=== PATIENT | male | born 1940 | race Caucasian/White ===

== ENCOUNTER → 2017-04-15 | Outpatient (CLI) | payer MEDICARE, OTHER ==
--- NOTE | 2017-04-15 15:03 | RADRPT ---
PROCEDURE: XR pelvis/right hip. CLINICAL INDICATION: Hip pain TECHNIQUE: AP pelvis/AP and lateral right hip views performed COMPARISON: No prior studies are available for comparison. FINDINGS: There is moderate right hip osteoarthrosis. There is mild left hip osteoarthrosis. This is associat ed with joint space narrowing, subchondral sclerosis and osteophytosis. There is normal mineralizat ion. No fractures or osseous lesions are identified. The soft tissues are unremarkable. IMPRESSION: Moderate right hip osteoarthrosis. Mild left hip osteoarthrosis RPTAT: HGDB .Tyrese Curran MD, Date Time Electronically viewed and signed by .Tyrese Curran MD, on 04/15/2017 15:03 .B/
== END | disposition home or self-care (01) ==
LOC: HKI 14:02
PROVIDERS: ATTEND Orthopaedic Surgery
DX: M16.11 Unilateral primary osteoarthritis, right hip (principal); I51.9 Heart disease, unspecified; I10 Essential (primary) hypertension; C61 Malignant neoplasm of prostate; Z87.891 Personal history of nicotine dependence; S72.051A Unspecified fracture of head of right femur, initial encounter for closed fracture; W19.XXXA Unspecified fall, initial encounter
CPT/HCPCS: 73502; G0463

== ENCOUNTER → 2017-05-18 | Outpatient (CLI) | payer MEDICARE, OTHER | END | disposition home or self-care (01) | LOC: HKI 10:00 | PROVIDERS: ATTEND Orthopaedic Surgery | DX: Z01.818 Encounter for other preprocedural examination (principal); M16.11 Unilateral primary osteoarthritis, right hip; M25.551 Pain in right hip | CPT/HCPCS: G0463 ==

== ENCOUNTER 2017-05-26 05:42 | Inpatient (IN) | payer MEDICARE, OTHER ==
[2017-05-18 14:18] VITALS: BMI 30.2
[2017-05-26] VITALS (34 sets, daily range): BP systolic 99–145; BP diastolic 46–75; PULSE 43–76; RESP 13–22; Ht 177.8 cm; Wt 94.7 kg
[~2017-05-26] VITALS: Ht 177.8 cm; Wt 94.7 kg
[2017-05-26] MEDS ORDERED: VANCOMYCIN 1 GM INJ ONE (06:44)
[2017-05-26] MEDS ORDERED: POLYMYXIN B 500000 UNIT INJ ONE (06:44)
[2017-05-26] MEDS ORDERED: BACITRACIN 50000 UNITS INJ ONE (06:45)
[2017-05-26] MEDS ORDERED: BUPIVACAINE LIPOSOME/PF 266 MG/20 ML VIAL INFIL SCH (07:00)
[2017-05-26] MEDS ORDERED: oxyCODONE (CR) 10 MG TAB [oxyCONTIN] X1 DOSE PO SCH (07:00)
[2017-05-26] MEDS ORDERED: PREGABALIN 300 MG PO X1 PO SCH (07:00)
[2017-05-26] MEDS ORDERED: TRANEXAMIC ACID 980 MG in SOD CHLORIDE 0.9% 90.2 ML IV SCH (07:00)
[2017-05-26] MEDS ORDERED: EXPAREL NOTE (BUPIVICAINE LIPOSOMAL) XX SCH (07:00)
[2017-05-26] MEDS ORDERED: traMADOL 50 MG TAB X 1 DOSE PO SCH (07:00)
[2017-05-26] MEDS ORDERED: EPHEDrine SULFATE 50 MG/5 ML SYG ONE (07:00)
[2017-05-26] MEDS ORDERED: ONDANSETRON 4 MG IV X 1 DOSE IV SCH (07:00)
[2017-05-26] MEDS ORDERED: CELECOXIB 400 MG PO X1 DOSE PO SCH (07:00)
[2017-05-26] MEDS ORDERED: LACTATED RINGER'S 1,000 ML IV SCH (07:00)
[2017-05-26] MEDS ORDERED: PAIN COCKTAIL-CEFUROXIME IRR SCH ×7 (07:00)
[2017-05-26] MEDS ORDERED: CEFAZOLIN 2GM/50 ML (PMX) 50 ML X1 BEFORE INCISION IVPB SCH (07:00)
[2017-05-26] MEDS ORDERED: MIDAZOLAM 1 MG/ML 2 ML INJ ONE (07:13)
[2017-05-26] MEDS ORDERED: ONDANSETRON 4 MG INJ ONE (07:13)
[2017-05-26] MEDS ORDERED: ROCURONIUM 50 MG INJ ONE (07:13)
[2017-05-26] MEDS ORDERED: FENTAnyl 50 MCG/ML VIAL ONE (07:13)
[2017-05-26] MEDS ORDERED: DEXAMETHASONE 4 MG/ML 1 ML INJ ONE (07:13)
[2017-05-26] MEDS ORDERED: CEFAZOLIN 1 GM INJ ONE (07:13)
[2017-05-26] MEDS ORDERED: GLYCOPYRROLATE 0.4 MG INJ ONE (07:13)
[2017-05-26] MEDS ORDERED: NEOSTIGMINE 3 MG/3 ML SYRINGE ONE (07:13)
[2017-05-26] MEDS ORDERED: PROPOFOL 20 ML ONE (07:13)
--- NOTE | 2017-05-26 07:16 | HPN ---
Date/Time of Note Date/Time of Note DATE: 05/26/17 TIME: 07:15 Interval H&P Admission Note Pt. seen H&P reviewed: No system changes No change from H&P on 05/25/17 by MACHO Dunne MD May 26, 2017 07:15
[2017-05-26] MEDS ORDERED: UBID100T7 PO (07:22)
[2017-05-26] MEDS ORDERED: GABA300S PO (07:22)
[2017-05-26] MEDS ORDERED: ATEN-51 PO (07:22)
[2017-05-26] MEDS ORDERED: ROSU40TA35 PO (07:22)
[2017-05-26] MEDS ORDERED: PANT40TA4 PO (07:22)
[2017-05-26] MEDS ORDERED: FELO2.5T3 PO (07:22)
[2017-05-26] MEDS ORDERED: LEUP45SY IM (07:22)
[2017-05-26] MEDS ORDERED: CELE200C PO (07:22)
[2017-05-26] MEDS ORDERED: DOCU-144 PO (07:22)
[2017-05-26] MEDS ORDERED: CHOL20003 PO (07:22)
[2017-05-26] MEDS ORDERED: ESCI10TA48 PO (07:22)
[2017-05-26] MEDS ORDERED: TAMS0.4C2 PO (07:22)
[2017-05-26] MEDS ORDERED: ZOLP10TA5 PO (07:22)
[2017-05-26] MEDS ORDERED: POLY17PO6 PO (07:22)
[2017-05-26] MEDS ORDERED: ASPI81TA3 PO (07:22)
[2017-05-26] MEDS ORDERED: LISI-313 PO (07:22)
[2017-05-26] MEDS ORDERED: FENTAnyl 50 MCG/ML VIAL IV PRN ×3 (08:30)
[2017-05-26] MEDS ORDERED: EPHEDrine SULFATE 50 MG/5 ML SYG IV PRN (08:30)
[2017-05-26] MEDS ORDERED: MEPERIDINE 25 MG INJ IV PRN (08:30)
[2017-05-26] MEDS ORDERED: hydrALAzine 20 MG INJ IV PRN (08:30)
[2017-05-26] MEDS ORDERED: LABETALOL HCL 20MG INJ IV PRN (08:30)
[2017-05-26] MEDS ORDERED: TRIMETHOBENZAMIDE 100 MG/ML VIAL IM PRN (08:30)
[2017-05-26] MEDS ORDERED: HYDROmorphONE (0.2 MG/ML) 10ML SYG IV PRN ×3 (08:30)
[2017-05-26] MEDS ORDERED: ONDANSETRON 4 MG INJ IV PRN ×2 (08:30→10:30)
[2017-05-26] MEDS ORDERED: OXYCODONE/ACETAMINOPHEN (5/325) TAB PO PRN ×2 (08:30)
[2017-05-26] MEDS ORDERED: DIPHENHYDRAMINE 50 MG INJ IV PRN (08:30)
[2017-05-26] MEDS ORDERED: MIDAZOLAM 1 MG/ML 2 ML INJ IV PRN (08:30)
[2017-05-26] MEDS: TRANEXAMIC ACID 980 MG in SOD CHLORIDE 0.9% 100 ML IVPB SCH ×2 (08:50→09:40)
[2017-05-26] MEDS ORDERED: ETOMIDATE 20 MG INJ ONE (09:30)
[2017-05-26] MEDS ORDERED: PROPOFOL 100 ML ONE (09:30)
--- NOTE | 2017-05-26 10:19 | OPR ---
Date/Time of Note Date/Time of Note DATE: 05/26/17 TIME: 10:13 Operative Report Procedure Description DATE: 05/26/2017 PREOPERATIVE DIAGNOSIS: Right hip osteoarthritis POSTOPERATIVE DIAGNOSIS: Right hip osteoarthritis OPERATION PERFORMED: Right anterior total hip arthroplasty SURGEON: Regis Lewis MD COMPONENTS USED: Depuy 54 mm description [place] cup, 54/36 neutral Altrx polyethylene liner, size 6 high offset Actis stem, 36+5 ceramic head ANESTHESIA: Spinal plus general endotracheal intubation. ANESTHESIOLOGIST: Dr. Martin ESTIMATED BLOOD LOSS: 300 cc INTRAVENOUS FLUIDS: 2000 cc crystalloid SPECIMENS: Femoral head. DRAINS: Hemovac 1 COMPLICATIONS: None. DISPOSITION: The patient tolerated the procedure well and was taken to the recovery room in stable condition. INDICATIONS: The patient is a 76-year-old gentleman who has developed progressively worsening pain in his right hip secondary to severe osteoarthritis. He has tried a multitude of nonsurgical means of treatment to address his pain including activity modifications, pain medications, and ambulatory assist devices. Despite these measures he has had worsening pain I feel he will benefit from a total hip arthroplasty through an anterior approach. The risks, benefits, and alternatives of the procedure were explained in detail to the patient. I explained the risks of the surgery to include, but not be limited to: bleeding and possible need for blood transfusion; infection; pain; stiffness; neurovascular injury with possible numbness, weakness, and/or paralysis anywhere from the hip down to the toes; fracture; instability; dislocation; leg length inequality; wear and/or loosening of the prosthesis and possible need for future revision; blood clots; pulmonary embolism; and anesthetic complications such as heart attack, stroke, GI bleed, pneumonia, and/ or . Ample time was allowed for the patient to ask questions, all of which were addressed and answered. The patient understood the risks involved and wished to proceed. Informed consent was signed prior to the procedure. PROCEDURE: The patient's [] hip was initialed with a marking pen in the preoperative area to identify the correct operative site. The patient was brought to the operating room and transferred from the [facility] to the [facility] where a spinal anesthetic was administered. The patient was then anesthetized and intubated. A Peters catheter was placed. Both feet were placed into well padded boots which were then placed into the leg holders of the traction booms. A timeout was performed to confirm that the [] side was the correct operative site. The patient was given 2 g of intravenous Ancef within one hour prior to the procedure. The operative hip was prepped and draped in the usual sterile fashion. A 10 cm oblique incision was made over the anterior aspect of the hip and carried down through subcutaneous tissue and fat with sharp dissection. The tensor fascia anirudh was incised along the length of the wound. The tensor fascia muscle was retracted laterally and the sartorius medially. The anterior circumflex vessels were identified and tied off with 2-0 silk suture and coagulated with the Tissue Link manager diversity. The rectus femoris was elevated off the anterior capsule and an anterior capsulectomy performed. A femoral neck osteotomy was made and the head removed from the acetabulum. The acetabulum was denuded of cartilage circumferentially, as was the femoral head. Retractors were placed around the acetabulum. The remnants of the labrum and ligamentum teres were excised. I reamed the acetabulum to the medial wall and then went into an anatomic position and increased the reamer size in 2 mm increments until I got a good bite and was down to bleeding subchondral bone. The [place] cup was opened and impacted into the acetabulum and sat flush circumferentially, getting a good bite. C-arm imaging showed it had about 40 to 45 degrees of abduction and 20 degrees of anteversion. Attention was turned towards the femur. The operative leg was carefully lowered to the floor with the leg adducted. The foot was then externally rotated to approximately 110 degrees. A posteromedial release was performed to optimize exposure. The femoral hook was placed underneath the proximal femur and the hydraulic lift was then used to elevate the femur up out of the wound. The cookie cutter osteotome was used to remove the remaining overhanging greater trochanter. The femur was then broached, going up in one size increments until it sat flush with the neck cut and a stable fit was achieved. The trial neck and head were assembled and reduced into the acetabulum. Fluoroscopic imaging showed the components to be in good position and the leg lengths and offsets to be equal. At this point, the trial was dislocated and the trial broach removed. The canal was irrigated and dried. The real stem was opened and impacted into the femur. The trunnion was irrigated and dried, and the real femoral head was impacted onto the trunnion, and reduced into the acetabulum. The soft tissues were infiltrated with a mixture of 150 mg of 0.5% Bupivacaine, 8 mg of Duramorph, 300 mcg of epinephrine, 30 mg of Toradol, 100 mcg of clonidine, 750 mg of cefuroxime and 86 mL of normal saline, followed by an injection of 266 mg of liposomal Bupivacaine. At this point the hip was irrigated with a mixture of betadine/saline and then antibiotic saline with pulsatile lavage. A Hemovac drain was placed in the deep portion of the wound and brought out the anterolateral thigh. There was good hemostasis. The tensor fascia anirudh was repaired with a running #1 Vicryl. The deep fat layer was irrigated and closed with 2-0 Stratafix and the subcutaneous layer closed with 3 -0 Vicryl and the skin was closed with marcella and then sealed with Dermabond. The drain was secured with 3-0 nylon. The sponge and needle counts were correct at the end of the case. The wound was covered with an occlusive dressing. The patient was awakened, extubated, and taken to the recovery room in stable condition. REGIS LEWIS MD May 26, 2017 10:19
[2017-05-26] MEDS ORDERED: ZOLPIDEM 5 MG TAB PO PRN (10:30)
[2017-05-26] MEDS ORDERED: NACL 0.9% 3 ML SYG IV SCH (10:30)
[2017-05-26] MEDS ORDERED: HYDROmorphONE 1 MG/ML SYG IV PRN (10:30)
[2017-05-26] MEDS ORDERED: NA PHOSPHATE/BIPHOS 133 ML ENEMA PR PRN (10:30)
[2017-05-26] MEDS ORDERED: DIPHENHYDRAMINE 25 MG CAP PO PRN (10:30)
[2017-05-26] MEDS ORDERED: ASPIRIN (EC) 325 MG TAB PO ONE (10:30)
[2017-05-26] MEDS ORDERED: BISACODYL 10 MG SUPP PR PRN (10:30)
[2017-05-26] MEDS ORDERED: MAGNESIUM HYDROXIDE 30ML CUP PO PRN (10:30)
[2017-05-26] MEDS ORDERED: oxyCODONE 5 MG TAB PO PRN ×2 (10:30)
[2017-05-26 10:39] LABS: HEMATOCRIT 31.9 % (42.0-52.0); HEMOGLOBIN 10.4 g/dl (14.0-18.0)
[2017-05-26 10:54] LABS: CALCIUM 9.2 mg/dl (8.4-10.2); CREATININE 1.04 mg/dl (0.61-1.24); POTASSIUM 4.3 mmol/L (3.5-5.1)
[2017-05-26] MEDS: CEFAZOLIN 2 GM/50 ML (PMX) 50 ML IVPB SCH ×2 (10:56→18:30)
--- NOTE | 2017-05-26 11:10 | RADRPT ---
PROCEDURE: Intraoperative imaging of the right hip with fluoroscopy. CLINICAL INDICATION: Right hip pain. Intraoperative. TECHNIQUE: 16 images of the right hip were obtained in the operating room with an image intensifie r. No radiologist was in attendance. 0.4 minutes of fluoroscopy time was used. COMPARISON: No prior study is available for comparison. FINDINGS: Images demonstrate placement of a total right hip arthroplasty. IMPRESSION: 1. Satisfactory intraoperative imaging of the right hip. RPTAT: QQ .Dionicio Michelle MD, MD Date Time Electronically viewed and signed by .Dionicio Michelle MD, on 05/26/2017 11:10 .R/
--- NOTE | 2017-05-26 11:44 | RADRPT ---
PROCEDURE: XR Pelvis. CLINICAL INDICATION: Pelvic pain. Postop. TECHNIQUE: Single frontal view. COMPARISON: Intraoperative imaging done earlier the same day. FINDINGS: There is a right hip total arthroplasty. This appears satisfactory with no fracture, dislocation or loosening. There is no lytic lesion. There are mild degenerative changes of the left hip with osteophytes noted. Right lateral skin marcella and surgical drain are noted. There is gas in the soft tissues of the ri ght hip related to the recent surgery. IMPRESSION: 1. Satisfactory postoperative appearance of the right hip. 2. Mild degenerative changes of the left hip. RPTAT: QQ .Dionicio Michelle MD, MD Date Time Electronically viewed and signed by .Dionicio Michelle MD, MD on 05/26/2017 11:44 .R/
[2017-05-26] MEDS: traMADol 50 MG TAB PO SCH ×3 (12:28→23:08)
[2017-05-26] MEDS: ACETAMINOPHEN 1000MG/100ML IV 100 ML IVPB SCH ×3 (12:29→23:07)
--- NOTE | 2017-05-26 13:54 | CONS ---
Date/Time of Note Date/Time of Note DATE: 05/26/17 TIME: 13:38 Assessment/Plan Assessment/Plan Chief Complaint/Hosp Course Impression: This patient is now postop a right total hip arthroplasty. He is awake and alert. He denies pain. He denies any chest pain or shortness of breath. The patient has a history of atherosclerotic heart disease, prostate cancer, hypertension, hyperlipidemia. I will manage these medical problems. His blood pressure is normal and he is doing well. Plan: 1. Resume some routine medications 2. Check labs in the morning 3. Postop total hip replacement protocol 4. I will follow the patient along with you. Problems: Consultation Date/Type/Reason Admit Date/Time May 26, 2017 at 05:42 Date of Consultation: May 26, 2017 Type of Consultation: medicine Reason for Consultation To manage the patient's hypertension, atherosclerotic heart disease, hyperlipidemia, benign prostatic hypertrophy and prostate cancer, Referring Provider: MACHO LEWIS MD Hx of Present Illness This 76-year-old man is now postop a right total hip arthroplasty. The patient fell and injured his right hip about 3 months ago and since that time he has had increasing pain and limitation of motion. He did have an MRI of his hip that showed a fracture of the femoral head and severe osteoarthritis. The patient did see Dr. Kirt Henriquez in consultation. The patient had failed medical therapy and decided to undergo surgery which was done this morning. The patient is awake and alert. He denies any chest pain or shortness of breath. Patient does have a history of atherosclerotic heart disease and was seen by his raw juice weigher Dr. Chacho Samayoa and cleared for this surgery. There is a note on the chart from Dr. Samayoa . Constitutional: no complaints ENT: no complaints Respiratory: no complaints Cardiovascular: no complaints Gastrointestinal: no complaints Genitourinary: no complaints Skin: no complaints Neurologic: no complaints Past Medical History Medical History: coronary artery disease, high cholesterol, hypertension Past Surgical History Past Surgical Hx: angioplasty, other Family History Significant Family History: heart disease Social History Alcohol Use: occasionally Smoking Status: Former smoker Drug Use: none Exam/Review of Systems Vital Signs Vitals Vital Signs Date Time Temp Pulse Resp B/P Pulse Ox O2 Delivery O2 Flow Rate FiO2 05/26/17 13:15 98.1 63 18 111/55 95 05/26/17 12:49 Nasal Cannula 2.0 Exam Constitutional: alert, oriented, well developed Respiratory: clear to auscultation, normal air movement Cardiovascular: regular rate and rhythm Gastrointestinal: soft Musculoskeletal: nl extremities to inspection Results Result Diagram: 05/26/17 1021 05/26/17 1021 Results 24 hrs Laboratory Tests Test 05/26/17 10:21 Hemoglobin 10.4 L Hematocrit 31.9 L Sodium Level 136 Potassium Level 4.3 Chloride Level 100 Carbon Dioxide Level 27 Anion Gap 13 Blood Urea Nitrogen 16 Creatinine 1.04 Glucose Level 168 Calcium Level 9.2 Medications Medications Current Medications Lactated Ringer's (Lr) 1,000 ml @ 100 mls/hr Q10H IV ; Start 05/26/17 at 07:00 ; Stop 05/26/17 at 16:59 Miscellaneous Information 1 ea NOTE XX ; Start 05/26/17 at 07:00; Stop 05/30/17 at 06:59 Atenolol (Tenormin) 25 mg DAILY PO ; Start 05/27/17 at 09:00 Celecoxib (Celebrex) 200 mg DAILY PO ; Start 05/27/17 at 09:00 Cholecalciferol (Vitamin D) 1,000 unit DAILY PO ; Start 05/27/17 at 09:00 Docusate Sodium (Colace) 100 mg DAILY PO ; Start 05/27/17 at 09:00 Escitalopram Oxalate (Lexapro) 10 mg DAILY PO ; Start 05/27/17 at 09:00 Felodipine (Plendil) 2.5 mg DAILY PO ; Start 05/27/17 at 09:00 Lisinopril (Zestril) 5 mg DAILY PO ; Start 05/27/17 at 09:00 Polyethylene Glycol (Miralax) 8.5 gm DAILY PO ; Start 05/27/17 at 09:00 Rosuvastatin Calcium (Crestor) 40 mg QHS PO ; Start 05/26/17 at 21:00 Tamsulosin HCl (Flomax) 0.4 mg DAILY PO ; Start 05/27/17 at 09:00 Zolpidem Tartrate 10 mg 10 mg QHS PRN PO INSOMNIA; Start 05/26/17 at 10:30 Lactated Ringer's 1,000 ml @ 125 mls/hr Q8H IV ; Start 05/26/17 at 10:28 Acetaminophen (Ofirmev 1000mg/ 100ml Iv) 100 ml @ 400 mls/hr Q6 IVPB Last administered on 05/26/17 12:29; Admin Dose 400 MLS/HR; Start 05/26/17 at 12:00 ; Stop 05/27/17 at 11:59 Tramadol HCl (Ultram) 50 mg Q6 PO Last administered on 05/26/17 12:28; Admin Dose 50 MG; Start 05/26/17 at 12:00; Stop 05/29/17 at 11:59 Oxycodone HCl (Roxicodone) 5 mg Q4H PRN PO PAIN LEVEL 1-3; Start 05/26/17 at 10 :30 Oxycodone HCl (Roxicodone) 10 mg Q4H PRN PO PAIN LEVEL 4-7; Start 05/26/17 at 10:30 Hydromorphone HCl 1 mg 1 mg Q3H PRN IV PAIN LEVEL 8-10; Start 05/26/17 at 10:30 Cefazolin Sodium/ Dextrose (Ancef 2 Gm/50 ml (Pmx)) 50 ml @ 100 mls/hr Q8H IVPB Last administered on 05/26/17 10:56; Admin Dose 100 MLS/HR; Start at 10:30; Stop 05/27/17 at 02:59 Ondansetron HCl (Zofran Inj) 4 mg Q6H PRN IV NAUSEA AND/OR VOMITING; Start at 10:30 Bisacodyl (Dulcolax Supp) 10 mg Q12H PRN [place] CONSTIPATION; Start 05/26/17 at 10: 30 Magnesium Hydroxide (Milk Of Mag) 30 ml BID PRN PO CONSTIPATION; Start at 10:30 Sodium Biphosphate/ Sodium Phosphate (Fleet Enema) 133 ml DAILY PRN [place] CONSTIPATION; Start 05/26/17 at 10:30 Docusate Sodium (Colace) 100 mg BID PO ; Start 05/26/17 at 21:00 Diphenhydramine HCl (Benadryl) 25 mg Q6H PRN PO PRURITUS; Start 05/26/17 at 10: 30 Aspirin (Ecotrin) 325 mg BID PO ; Start 05/27/17 at 09:00 Pantoprazole (Protonix Tab) 40 mg BID@06,18 PO ; Start 05/26/17 at 18:00 FEI MENENDEZ MD May 26, 2017 13:49
[2017-05-26] MEDS: LACTATED RINGER'S 1,000 ML IV SCH ×2 (18:01→18:12)
[2017-05-26] MEDS: PANTOPRAZOLE (EC) 40 MG TAB PO SCH (18:11)
[2017-05-26] MEDS: DOCUSATE SODIUM 100 MG CAP PO SCH (21:38)
[2017-05-26] MEDS: ROSUVASTATIN CALCIUM 40 MG TABLET PO SCH (21:38)
[2017-05-27] VITALS: BP 119/65; RESP 18
[2017-05-27] MEDS: LACTATED RINGER'S 1,000 ML IV SCH ×2 (02:10→12:49)
[2017-05-27] MEDS: CEFAZOLIN 2 GM/50 ML (PMX) 50 ML IVPB SCH (02:10)
[2017-05-27 05:16] LABS: HEMATOCRIT 28.6 % (42.0-52.0); HEMOGLOBIN 9.7 g/dl (14.0-18.0)
[2017-05-27] MEDS: PANTOPRAZOLE (EC) 40 MG TAB PO SCH ×2 (05:20→17:51)
[2017-05-27] MEDS: ACETAMINOPHEN 1000MG/100ML IV 100 ML IVPB SCH (05:20)
[2017-05-27] MEDS: traMADol 50 MG TAB PO SCH ×4 (05:20→23:59)
[2017-05-27 05:30] VITALS: BP 114/57; PULSE 44; RESP 18
[2017-05-27 05:56] LABS: CALCIUM 9.4 mg/dl (8.4-10.2); CREATININE 0.96 mg/dl (0.61-1.24); POTASSIUM 4.2 mmol/L (3.5-5.1)
[2017-05-27] MEDS ORDERED: PANTOPRAZOLE (EC) 40 MG TAB PO SCH (07:00)
[2017-05-27 07:59] VITALS: BP 124/63; RESP 18
[2017-05-27] MEDS: ATENOLOL 25 MG TAB PO SCH (08:15)
--- NOTE | 2017-05-27 08:40 | PN ---
Date/Time of Note Date/Time of Note DATE: 05/27/17 TIME: 08:38 Assessment/Plan Lines/Catheters IV Catheter Type (from Nrsg): Peripheral IV Peters in Place (from Nrsg): Yes Assessment/Plan Assessment/Plan POD # 1. Stable. -Drain removed -OOB with PT -Pain meds -ASA/SCDs -Plan for d/c to home tomorrow Subjective 24 Hr Interval Summary Comfortable. Minimal pain. Exam/Review of Systems Vital Signs Vitals Vital Signs Date Time Temp Pulse Resp B/P Pulse Ox O2 Delivery O2 Flow Rate FiO2 05/27/17 07:59 98.0 41 18 124/63 93 05/27/17 05:30 Room Air CPAP 05/27/17 01:17 2.0 Intake and Output 05/26/17 05/26/17 05/27/17 15:00 23:00 07:00 Intake Total 2249.8 ml 350 ml 2075 ml Output Total 610 ml 710 ml 3100 ml Balance 1639.8 ml -360 ml -1025 ml Exam Free Text/Dictation Hemovac: 310 cc Dressing dry Thigh soft 5/5 Quadriceps, Tibialis Anterior, EHL, Gastroc Soleus, Peroneals Normal sensation Palpable DP/PT, CR < 2 Sec No distal edema Xrays: Right ELYSE in good position. Head located in acetabulum Results Result Diagram: 05/27/17 0435 05/27/17 0435 MACHO LEWIS MD May 27, 2017 08:39
[2017-05-27] MEDS ORDERED: HYDR-3605 PO (08:48)
[2017-05-27] MEDS ORDERED: ASPI325T32 PO (08:48)
[2017-05-27] MEDS ORDERED: TRAM50TA2 PO (08:48)
[2017-05-27] MEDS: POLYETHYLENE GLYCOL 17 GM PACKET PO SCH ×2 (08:50→09:00)
[2017-05-27] MEDS: TAMSULOSIN (SR) 0.4 MG CAP PO SCH (08:51)
[2017-05-27] MEDS: CELECOXIB 200 MG CAP PO SCH (08:51)
[2017-05-27] MEDS: DOCUSATE SODIUM 100 MG CAP PO SCH ×4 (08:52→20:52)
[2017-05-27] MEDS: CHOLECALCIFEROL 1,000 UNIT TAB PO SCH (08:52)
[2017-05-27] MEDS: ESCITALOPRAM 10 MG TAB PO SCH (08:52)
[2017-05-27] MEDS: ASPIRIN (EC) 325 MG TAB PO SCH ×2 (08:57→20:52)
[2017-05-27] MEDS ORDERED: FELODIPINE (ER) 2.5 MG TAB PO SCH (09:00)
[2017-05-27] MEDS ORDERED: CELECOXIB 200 MG CAP PO SCH (09:00)
[2017-05-27] MEDS ORDERED: LISINOPRIL 5 MG TAB PO SCH ×2 (09:00→21:00)
[2017-05-27] MEDS ORDERED: HYDROCODONE/APAP (7.5/325) TAB PO PRN ×2 (09:00)
[2017-05-27 09:18] LABS: ADD UMIC NO; UR ASCORBIC ACID NEGATIVE (NEGATIVE); UR BILIRUBIN (Dip) NEGATIVE (NEGATIVE); UR BLOOD (Dip) NEGATIVE (NEGATIVE); UR CLARITY CLEAR (CLEAR); UR COLOR STRAW (YELLOW); UR GLUCOSE (Dip) NEGATIVE (NEGATIVE); UR KETONES (Dip) NEGATIVE (NEGATIVE); UR LEUKOCYTE ESTERASE (Dip) NEGATIVE Leu/ul (NEGATIVE); UR NITRITE (Dip) NEGATIVE (NEGATIVE); UR TOTAL PROTEIN (Dip) NEGATIVE (NEGATIVE); UR UROBILINOGEN (Dip) NEGATIVE (NEGATIVE)
--- NOTE | 2017-05-27 09:22 | CONS ---
Date/Time of Note Date/Time of Note DATE: 05/27/17 TIME: 09:18 Assessment/Plan Assessment/Plan Chief Complaint/Hosp Course Impression: This patient is now one day postop a right total hip arthroplasty. He is awake and alert. He denies pain. He denies any chest pain or shortness of breath. The patient has a history of atherosclerotic heart disease, prostate cancer, hypertension, hyperlipidemia. He has a history of sinus bradycardia. His heart rate has been low. He has been asymptomatic with this. Plan: 1. Resume some routine medications 2. Labs are acceptable this morning and will be checked tomorrow. 3. Postop total hip replacement protocol and start physical therapy today. 4. I will follow the patient along with you. Problems: Consultation Date/Type/Reason Admit Date/Time May 26, 2017 at 05:42 Initial Consult Date 05/26/17 Type of Consultation: medicine Referring Provider: MACHO LEWIS MD 24 HR Interval Summary Free Text/Dictation He is now 1 day postop a right total hip arthroplasty. He feels well. Constitutional: improved, no complaints Exam/Review of Systems Vital Signs Vitals Vital Signs Date Time Temp Pulse Resp B/P Pulse Ox O2 Delivery O2 Flow Rate FiO2 05/27/17 07:59 98.0 41 18 124/63 93 05/27/17 05:30 Room Air CPAP 05/27/17 01:17 2.0 Intake and Output 05/26/17 05/26/17 05/27/17 15:00 23:00 07:00 Intake Total 2249.8 ml 350 ml 2075 ml Output Total 610 ml 710 ml 3100 ml Balance 1639.8 ml -360 ml -1025 ml Exam Constitutional: alert, oriented, well developed Respiratory: clear to auscultation, normal air movement Cardiovascular: regular rate and rhythm Gastrointestinal: non-tender, soft Extremities: normal pulses Results Result Diagram: 05/27/17 0435 05/27/17 0435 Results 24 hrs Laboratory Tests Test 05/26/17 10:21 05/27/17 04:35 Hemoglobin 10.4 L 9.7 L Hematocrit 31.9 L 28.6 L Sodium Level 136 137 Potassium Level 4.3 4.2 Chloride Level 100 99 Carbon Dioxide Level 27 30 Anion Gap 13 12 Blood Urea Nitrogen 16 14 Creatinine 1.04 0.96 Glucose Level 168 129 Calcium Level 9.2 9.4 Medications Medications Current Medications Miscellaneous Information 1 ea NOTE XX ; Start 05/26/17 at 07:00; Stop 05/30/17 at 06:59 Atenolol (Tenormin) 25 mg DAILY PO ; Start 05/27/17 at 09:00 Celecoxib (Celebrex) 200 mg DAILY PO Last administered on 05/27/17 08:51; Admin Dose 200 MG; Start 05/27/17 at 09:00 Cholecalciferol (Vitamin D) 1,000 unit DAILY PO Last administered on 05/27/17 08:52; Admin Dose 1,000 UNIT; Start 05/27/17 at 09:00 Docusate Sodium (Colace) 100 mg DAILY PO Last administered on 05/27/17 08:52; Admin Dose 100 MG; Start 05/27/17 at 09:00 Escitalopram Oxalate (Lexapro) 10 mg DAILY PO Last administered on 05/27/17 08 :52; Admin Dose 10 MG; Start 05/27/17 at 09:00 Lisinopril (Zestril) 5 mg DAILY PO ; Start 05/27/17 at 09:00 Polyethylene Glycol (Miralax) 8.5 gm DAILY PO Last administered on 05/27/17 08 :50; Admin Dose 8.5 GM; Start 05/27/17 at 09:00 Rosuvastatin Calcium (Crestor) 40 mg QHS PO Last administered on 05/26/17 21: 38; Admin Dose 40 MG; Start 05/26/17 at 21:00 Tamsulosin HCl (Flomax) 0.4 mg DAILY PO Last administered on 05/27/17 08:51; Admin Dose 0.4 MG; Start 05/27/17 at 09:00 Zolpidem Tartrate 10 mg 10 mg QHS PRN PO INSOMNIA; Start 05/26/17 at 10:30 Lactated Ringer's 1,000 ml @ 125 mls/hr Q8H IV Last administered on 05/27/17 02:10; Admin Dose 125 MLS/HR; Start 05/26/17 at 10:28 Acetaminophen (Ofirmev 1000mg/ 100ml Iv) 100 ml @ 400 mls/hr Q6 IVPB Last administered on 05/27/17 05:20; Admin Dose 400 MLS/HR; Start 05/26/17 at 12:00 ; Stop 05/27/17 at 11:59 Tramadol HCl (Ultram) 50 mg Q6 PO Last administered on 05/27/17 05:20; Admin Dose 50 MG; Start 05/26/17 at 12:00; Stop 05/29/17 at 11:59 Hydromorphone HCl (Dilaudid) 1 mg Q3H PRN IV PAIN LEVEL 8-10; Start 05/26/17 at 10:30 Ondansetron HCl (Zofran Inj) 4 mg Q6H PRN IV NAUSEA AND/OR VOMITING; Start at 10:30 Bisacodyl (Dulcolax Supp) 10 mg Q12H PRN [place] CONSTIPATION; Start 05/26/17 at 10: 30 Magnesium Hydroxide (Milk Of Mag) 30 ml BID PRN PO CONSTIPATION; Start at 10:30 Sodium Biphosphate/ Sodium Phosphate (Fleet Enema) 133 ml DAILY PRN [place] CONSTIPATION; Start 05/26/17 at 10:30 Docusate Sodium (Colace) 100 mg BID PO Last administered on 05/27/17 08:52; Admin Dose 100 MG; Start 05/26/17 at 21:00 Diphenhydramine HCl (Benadryl) 25 mg Q6H PRN PO PRURITUS; Start 05/26/17 at 10: 30 Aspirin (Ecotrin) 325 mg BID PO Last administered on 05/27/17 08:57; Admin Dose 325 MG; Start 05/27/17 at 09:00 Pantoprazole (Protonix Tab) 40 mg BID@ PO Last administered on 05/27/17 05:20; Admin Dose 40 MG; Start 05/26/17 at 18:00 Acetaminophen/ Hydrocodone Bitart ([place] (7.5-325)) 1 tab Q6H PRN PO MODERATE PAIN LEVEL 4-6; Start 05/27/17 at 09:00 Acetaminophen/ Hydrocodone Bitart ([place] (7.5-325)) 2 tab Q6H PRN PO SEVERE PAIN LEVEL 7-10; Start 05/27/17 at 09:00 FEI MENENDEZ MD May 27, 2017 09:21
[2017-05-27 13:12] LABS: IRON 35 ug/dl (35-150)
[2017-05-27 13:22] LABS: TOTAL IRON BINDING CAPACITY 346 ug/dl (241-421)
[2017-05-27 20:47] VITALS: BP 123/61; RESP 20
[2017-05-27] MEDS: ROSUVASTATIN CALCIUM 40 MG TABLET PO SCH (20:52)
[2017-05-27] MEDS ORDERED: POLYETHYLENE GLYCOL 17 GM PACKET PO SCH (21:00)
[2017-05-28 05:12] LABS: HEMATOCRIT 29.6 % (42.0-52.0); HEMOGLOBIN 9.6 g/dl (14.0-18.0)
[2017-05-28 05:45] LABS: CALCIUM 9.2 mg/dl (8.4-10.2); CREATININE 0.89 mg/dl (0.61-1.24); POTASSIUM 4.2 mmol/L (3.5-5.1)
[2017-05-28] MEDS: traMADol 50 MG TAB PO SCH (05:51)
[2017-05-28] MEDS: PANTOPRAZOLE (EC) 40 MG TAB PO SCH (05:51)
[2017-05-28 07:00] VITALS: BP 129/62; RESP 20
[2017-05-28] MEDS: ESCITALOPRAM 10 MG TAB PO SCH (08:31)
[2017-05-28] MEDS: ASPIRIN (EC) 325 MG TAB PO SCH (08:31)
[2017-05-28] MEDS: TAMSULOSIN (SR) 0.4 MG CAP PO SCH (08:31)
[2017-05-28] MEDS: CELECOXIB 200 MG CAP PO SCH (08:31)
[2017-05-28] MEDS: CHOLECALCIFEROL 1,000 UNIT TAB PO SCH (08:32)
[2017-05-28] MEDS: DOCUSATE SODIUM 100 MG CAP PO SCH (08:32)
[2017-05-28] MEDS: ATENOLOL 25 MG TAB PO SCH (08:33)
--- NOTE | 2017-05-28 08:56 | PN ---
Date/Time of Note Date/Time of Note DATE: 05/28/17 TIME: 08:53 Assessment/Plan VTE Prophylaxis VTE Prophylaxis Intervention: ambulation, SCD's, other (Aspirin 325 mg twice daily) Lines/Catheters IV Catheter Type (from Nrsg): Saline Lock Peters in Place (from Nrsg): No Assessment/Plan Assessment/Plan -Pain Meds as needed -Dress change performed today -ASA for DVT Prophylaxis x 6 weeks outpatient discussed. -Continue monitoring as outpatient on discharge -Follow-up at scheduled postop outpatient appointment or sooner if there is any issue. -Tegaderm dressings given with specific instructions to use as outpatient to keep wound dry until marcella are moved around 10 days. -Hip precautions discussed -Patient Stable -Discharge to Home with home health Subjective 24 Hr Interval Summary 76-year-old male postop day 2 right total hip replacement. Patient continues to do well. Denies any pain complaints. Up and walking with physical therapy. Weightbearing as tolerated with front wheeled walker. Patient is ready to go home today. Constitutional: no complaints Exam/Review of Systems Vital Signs Vitals Vital Signs Date Time Temp Pulse Resp B/P Pulse Ox O2 Delivery O2 Flow Rate FiO2 05/28/17 07:00 97.9 63 20 129/62 92 05/27/17 05:30 Room Air CPAP 05/27/17 01:17 2.0 Intake and Output 05/27/17 05/27/17 05/28/17 15:00 23:00 07:00 Intake Total 1920 ml 600 ml Output Total 800 ml 1800 ml Balance 1120 ml -1200 ml Exam Free Text/Dictation -Incision: Clean, Dry and Intact without any redness or drainage -Thigh soft -5/5 Quadriceps, Tibialis Anterior, EHL Gastrocnemius/Soleus and Peroneals -Normal Sensation -Palpable DP/PT, Capillary Refill <2 secs -No Distal Edema -Negative Renan Sign/No calf pain -Toes Freely Movable Constitutional: alert, oriented, well developed Results Result Diagram: 05/28/17 0443 05/28/17 0443 ANDREY KEANE PA-C May 28, 2017 08:56
--- NOTE | 2017-05-28 11:40 | CONS ---
Date/Time of Note Date/Time of Note DATE: 05/28/17 TIME: 11:38 Assessment/Plan Assessment/Plan Additional Assessment/Plan Impression: This patient is now one day postop a right total hip arthroplasty. He is awake and alert. He denies pain. He denies any chest pain or shortness of breath. The patient has a history of atherosclerotic heart disease, prostate cancer, hypertension, hyperlipidemia. He has a history of sinus bradycardia. His heart rate has been low. He has been asymptomatic with this. Plan: 1. Resume some routine medications 2. hypovolemic hyponatremia- ok for discharge, patient should drink and eat 3. Postop total hip replacement protocol and start physical therapy today. 4. I will follow the patient along with you. stable for discharge from medicine service Consultation Date/Type/Reason Admit Date/Time May 26, 2017 at 05:42 Initial Consult Date 05/26/17 Type of Consultation: medicine Referring Provider: MACHO LEWIS MD 24 HR Interval Summary Free Text/Dictation no complaints, doing well, no active issues, ready for discharge Exam/Review of Systems Vital Signs Vitals Vital Signs Date Time Temp Pulse Resp B/P Pulse Ox O2 Delivery O2 Flow Rate FiO2 05/28/17 07:00 97.9 63 20 129/62 92 05/27/17 05:30 Room Air CPAP 05/27/17 01:17 2.0 Intake and Output 05/27/17 05/27/17 05/28/17 14:59 22:59 06:59 Intake Total 1920 ml 600 ml Output Total 800 ml 1800 ml Balance 1120 ml -1200 ml Exam Constitutional: alert, oriented Neck: supple Respiratory: clear to auscultation, normal air movement Cardiovascular: nl pulses, regular rate and rhythm Gastrointestinal: soft Results Result Diagram: 05/28/17 0443 05/28/17 0443 Results 24 hrs Laboratory Tests Test 05/27/17 12:50 05/28/17 04:43 Iron Level 35 Total Iron Binding Capacity 346 Percent Iron Saturation 10 L Ferritin 53.1 Hemoglobin 9.6 L Hematocrit 29.6 L Sodium Level 132 L Potassium Level 4.2 Chloride Level 96 L Carbon Dioxide Level 30 Anion Gap 10 Blood Urea Nitrogen 12 Creatinine 0.89 Glucose Level 126 Calcium Level 9.2 Medications Medications Current Medications Miscellaneous Information 1 ea NOTE XX ; Start 05/26/17 at 07:00; Stop 05/30/17 at 06:59 Atenolol (Tenormin) 25 mg DAILY PO ; Start 05/27/17 at 09:00 Celecoxib (Celebrex) 200 mg DAILY PO Last administered on 05/28/17 08:31; Admin Dose 200 MG; Start 05/27/17 at 09:00 Cholecalciferol (Vitamin D) 1,000 unit DAILY PO Last administered on 05/28/17 08:32; Admin Dose 1,000 UNIT; Start 05/27/17 at 09:00 Escitalopram Oxalate (Lexapro) 10 mg DAILY PO Last administered on 05/28/17 08: 31; Admin Dose 10 MG; Start 05/27/17 at 09:00 Rosuvastatin Calcium (Crestor) 40 mg QHS PO Last administered on 05/27/17 20: 52; Admin Dose 40 MG; Start 05/26/17 at 21:00 Tamsulosin HCl (Flomax) 0.4 mg DAILY PO Last administered on 05/28/17 08:31; Admin Dose 0.4 MG; Start 05/27/17 at 09:00 Zolpidem Tartrate (Ambien) 10 mg QHS PRN PO INSOMNIA; Start 05/26/17 at 10:30 Tramadol HCl (Ultram) 50 mg Q6 PO Last administered on 05/28/17 05:51; Admin Dose 50 MG; Start 05/26/17 at 12:00; Stop 05/29/17 at 11:59 Hydromorphone HCl (Dilaudid) 1 mg Q3H PRN IV PAIN LEVEL 8-10; Start 05/26/17 at 10:30 Ondansetron HCl (Zofran Inj) 4 mg Q6H PRN IV NAUSEA AND/OR VOMITING; Start at 10:30 Bisacodyl (Dulcolax Supp) 10 mg Q12H PRN [place] CONSTIPATION; Start 05/26/17 at 10: 30 Magnesium Hydroxide (Milk Of Mag) 30 ml BID PRN PO CONSTIPATION; Start at 10:30 Sodium Biphosphate/ Sodium Phosphate (Fleet Enema) 133 ml DAILY PRN [place] CONSTIPATION; Start 05/26/17 at 10:30 Docusate Sodium (Colace) 100 mg BID PO Last administered on 05/28/17 08:32; Admin Dose 100 MG; Start 05/26/17 at 21:00 Diphenhydramine HCl (Benadryl) 25 mg Q6H PRN PO PRURITUS; Start 05/26/17 at 10: 30 Aspirin (Ecotrin) 325 mg BID PO Last administered on 05/28/17 08:31; Admin Dose 325 MG; Start 05/27/17 at 09:00 Pantoprazole (Protonix Tab) 40 mg BID@,18 PO Last administered on 05/28/17 05 :51; Admin Dose 40 MG; Start 05/26/17 at 18:00 Acetaminophen/ Hydrocodone Bitart (Brinkley (7.5-325)) 1 tab Q6H PRN PO MODERATE PAIN LEVEL 4-6; Start 05/27/17 at 09:00 Acetaminophen/ Hydrocodone Bitart (Brinkley (7.5-325)) 2 tab Q6H PRN PO SEVERE PAIN LEVEL 7-10; Start 05/27/17 at 09:00 Lisinopril (Zestril) 5 mg HS PO Last administered on 05/27/17 20:53; Admin Dose 5 MG; Start 05/27/17 at 21:00 Polyethylene Glycol (Miralax) 8.5 gm HS PO Last administered on 05/27/17 20:53 ; Admin Dose 8.5 GM; Start 05/27/17 at 21:00 KEN PAYNE MD May 28, 2017 11:40
== END 2017-05-28 12:28 | disposition home or self-care (01) | DRG 470 ==
LOC: REC 05:42 → MS1 12:35
PROVIDERS: ADMIT Orthopaedic Surgery; ATTEND Orthopaedic Surgery
PROC: 0SR904A Replacement of Right Hip Joint with Ceramic on Polyethylene Synthetic Substitute, Uncemented, Open Approach (ICD-10-PCS; principal; 2017-05-26 07:00)
DX: M16.11 Unilateral primary osteoarthritis, right hip (principal); I10 Essential (primary) hypertension; I25.10 Atherosclerotic heart disease of native coronary artery without angina pectoris; G47.30 Sleep apnea, unspecified; E78.5 Hyperlipidemia, unspecified; Z85.46 Personal history of malignant neoplasm of prostate
CPT/HCPCS: 72170; 73500; 73530; 80048; 81003; 82728; 83540; 85014; 85018; 86850; 86900; 86901; 86920; 87081; 87086; 88304; 88311; 97110; 97116; 97162; 97167; 97530; C1776; J0131; J0690; J1100; J2250; J2405; J2710; J3010; J3370; J7120

== ENCOUNTER → 2017-06-06 | Outpatient (CLI) | payer MEDICARE, OTHER ==
[~2017-06-06] MED LIST: ASPI325T32 PO; ATEN-51 PO; CELE200C PO; CHOL200073 PO; DOCU-144 PO; ESCI10TA48 PO; FELO2.5T3 PO; GABA300S PO; HYDR-3605 PO; LEUP45SY IM; LISI-313 PO; PANT40TA4 PO; POLY17PO6 PO; ROSU40TA35 PO; TAMS0.4C2 PO; TRAM50TA2 PO; UBID100T7 PO
--- NOTE | 2017-06-06 16:38 | RADRPT ---
PROCEDURE: XR Right hip and pelvis. CLINICAL INDICATION: Right hip pain. Pelvic pain. Postop. TECHNIQUE: Two views. Frontal pelvis and frontal right hip. COMPARISON: 05/26/2017. FINDINGS: There is no fracture or dislocation. Right lateral skin marcella are noted. The surgical drain has been removed. There is a right hip total arthroplasty which appears satisfactory. There are mild degenerative changes of the left hip with osteophytes noted. There is no lytic or blastic lesion. The upper pelvis is not completely included on the image. IMPRESSION: 1. Satisfactory postoperative appearance of the right hip. 2. Mild degenerative changes of the left hip. RPTAT: QQ .Dionicio Michelle MD, Date Time Electronically viewed and signed by .Dionicio Michelle MD, on 06/06/2017 16:38 .R/
== END | disposition home or self-care (01) ==
LOC: HKI 10:46
PROVIDERS: ATTEND Orthopaedic Surgery
DX: Z47.1 Aftercare following joint replacement surgery (principal); Z96.641 Presence of right artificial hip joint
CPT/HCPCS: 73502

== ENCOUNTER → 2017-07-01 | Outpatient (CLI) | payer MEDICARE, OTHER ==
--- NOTE | 2017-07-01 16:20 | RADRPT ---
PROCEDURE: XR Right hip and pelvis. CLINICAL INDICATION: Right hip pain. Pelvic pain. Postop. TECHNIQUE: Two views. Frontal pelvis and frontal right hip. COMPARISON: 06/06/2017. FINDINGS: There is no fracture or dislocation. The soft tissues are normal. There is a right hip total arthroplasty which appears satisfactory. There are mild degenerative changes of the left hip with osteophytes noted. There is no lytic or blastic lesion. The upper pelvis is not completely included on the image. IMPRESSION: 1. Satisfactory postoperative appearance of the right hip. 2. Mild degenerative changes of the left hip. 3. No significant change from 06/06/2017. RPTAT: QQ .Dionicio Michelle MD, MD Date Time Electronically viewed and signed by .Dionicio Michelle MD, on 07/01/2017 16:20 .R/
== END | disposition home or self-care (01) ==
LOC: HKI 11:02
PROVIDERS: ATTEND Orthopaedic Surgery
DX: Z47.1 Aftercare following joint replacement surgery (principal); M16.11 Unilateral primary osteoarthritis, right hip; Z96.641 Presence of right artificial hip joint
CPT/HCPCS: 73502

== ENCOUNTER 2017-08-25 16:45 | Inpatient (IN) | payer MEDICARE, OTHER ==
[~2017-08-25] VITALS: Ht 177.8 cm; Wt 96.1 kg
[2017-08-25] MEDS ORDERED: ASPIRIN 81 MG TAB PO STA (17:55)
[2017-08-25] MEDS: NITROGLYCERIN (SL) 0.4 MG TAB SL PRN ×2 (18:05→18:46)
[2017-08-25] MEDS: NITROGLYCERIN 2% 1 GM OINT PKT TD STA ×2 (18:06→18:46)
[2017-08-25] MEDS ORDERED: ACETAMINOPHEN 325 MG TAB PO PRN ×2 (18:30→22:00)
[2017-08-25] MEDS ORDERED: ONDANSETRON 4 MG INJ IV PRN (18:30)
--- NOTE | 2017-08-25 18:44 | RADRPT ---
PROCEDURE: XR Chest. CLINICAL INDICATION: Chest pain. TECHNIQUE: Single frontal view of the chest in apical lordotic position. COMPARISON: None. FINDINGS: Atherosclerotic calcifications in the thoracic aorta. Cardiomegaly. The lungs are clear. No signs of pleural fluid or pneumothorax are seen. The osseous structures and soft tissues are unremarkable. IMPRESSION: No evidence for active cardiopulmonary disease. RPTAT: [facility] Physician Moustapha Date Time Electronically viewed and signed by Rainer Sue Physician on 08/25/2017 18:43 RS/
[2017-08-25] MEDS ORDERED: FLUT16SP17 NASAL (18:46)
[2017-08-25] MEDS ORDERED: ZOLP10TA5 PO (18:46)
[2017-08-25 18:50] LABS: BASOPHILS % 0.5 % (0.0-2.0); EOSINOPHILS # 0.2 10^3/ul (0.0-0.5); EOSINOPHILS % 3.7 % (0.0-7.0); HEMATOCRIT 29.2 % (42.0-52.0); HEMOGLOBIN 9.1 g/dl (14.0-18.0); LYMPHOCYTES # 1.7 10^3/ul (0.8-2.9); LYMPHOCYTES % 28.9 % (15.0-51.0); MEAN CORPUSCULAR HEMOGLOBIN 27.8 pg (29.0-33.0); MEAN CORPUSCULAR HGB CONC 31.2 g/dl (32.0-37.0); MEAN CORPUSCULAR VOLUME 89.3 fl (82.0-101.0); MEAN PLATELET VOLUME 12.3 fl (7.4-10.4); MONOCYTE # 0.5 10^3/ul (0.3-0.9); MONOCYTES % 9.1 % (0.0-11.0); NEUTROPHIL # 3.4 10^3/ul (1.6-7.5); NEUTROPHILS % 57.6 % (39.0-77.0); PLATELET COUNT 161 10^3/UL (140-415); RED BLOOD COUNT 3.27 10^6/ul (4.70-6.10); RED CELL DISTRIBUTION WIDTH 14.8 % (11.5-14.5)
[2017-08-25] MEDS ORDERED: GABA300C16 PO (18:50)
[2017-08-25] MEDS ORDERED: MULTI PO (18:51)
[2017-08-25] MEDS ORDERED: FISH1CAP PO (18:55)
[2017-08-25] MEDS ORDERED: ASPI-664 PO (18:55)
[2017-08-25] MEDS ORDERED: CHOL100062 PO (18:55)
[2017-08-25] MEDS ORDERED: NAPR220C2 PO (18:56)
[2017-08-25 19:15] LABS: ANION GAP 14 (8-16); BLOOD UREA NITROGEN 17 mg/dl (7-20); CALCIUM 9.8 mg/dl (8.4-10.2); CARBON DIOXIDE 27 mmol/L (21-31); CHLORIDE 102 mmol/L (97-110); CREATININE 1.12 mg/dl (0.61-1.24); GLUCOSE 115 mg/dl (70-220); POTASSIUM 4.2 mmol/L (3.5-5.1); SODIUM 139 mmol/L (135-144)
[2017-08-25 19:36] LABS: CREATINE KINASE 139 IU/L (23-200)
[2017-08-25 19:40] LABS: TROPONIN-I < 0.012 ng/ml (0.00-0.12)
[2017-08-25 19:51] LABS: CK-MB 2.46 ng/ml (0.0-2.4); TROPONIN-I < 0.012 ng/ml (0.00-0.12)
--- NOTE | 2017-08-25 20:35 | ERA ---
ER Documentation Chief Complaint Date/Time DATE: 08/25/17 TIME: 20:33 Chief Complaint sob x 2 weeks sent by HPI Patient is a 77-year-old male with hypertension and coronary disease who presents with chest pain and shortness of breath. He saw his automatic tire tester last week for chest pain, shortness of breath, and dizziness and had an EKG, echocardiogram, and stress echocardiogram done. His blood test showed anemia. He also said that he was severely iron deficient. However he still was having chest pain shortness of breath today and it was worse today than it was last week. He has chest pain without exertion at this point. Upon review of old medical records the patient one previous visit to the ER in April 2017. His primary doctor is Dr. Mota. ROS All systems reviewed and are negative except as per history of present illness. Medications Home Meds Reported Medications Naproxen* (Aleve*) Unknown Strength Capsule, 1 CAP PO NEEDED, #60 CAP 08/25/17 Aspirin* (Aspirin* EC) 81 Mg Tablet.dr, 81 MG PO DAILY, TAB 08/25/17 Cholecalciferol* (Vitamin D3*) 1,000 Unit Tablet, 1000 UNIT PO DAILY, TAB 08/25/17 Fish Oil/Dha/Epa (FISH OIL 1,200 MG FISH OIL) 1 Each Capsule, 600 MG PO DAILY, CAP 08/25/17 Multivitamins* (Theragran*) 1 Tab Tab, 1 TAB PO DAILY, TAB 08/25/17 Gabapentin* (Gabapentin*) 300 Mg Capsule, 300 MG PO QAM, #30 CAP 08/25/17 Fluticasone Propionate* (Fluticasone Propionate* Nasal) 50 Mcg/Carefree - 16 Gm Carefree.susp, 2 SPRAYS NASAL QHS, #1 BOTTLE TO EACH NOSTRIL 08/25/17 Zolpidem Tartrate* (Zolpidem Tartrate*) 10 Mg Tablet, 10 MG PO QHS Y for INSOMNIA, #30 TAB 08/25/17 Ubidecarenone (COENZYME Q10) 100 Mg Tablet, 100 MG PO BID, TAB 2PD 05/26/17 Docusate Sodium* (Colace*) 100 Mg Capsule, 100 MG PO QHS, #30 CAP 05/26/17 Polyethylene Glycol* (Miralax*) 17 Gm Powd.pack, 8.5 GM PO QHS, #30 PACKET 05/26/17 Leuprolide Acetate (LUPRON DEPOT) 45 Mg Syringekit, 22.5 MG IM 1 EVERY 3 MONTHS 05/26/17 Escitalopram Oxalate* (Escitalopram Oxalate*) 10 Mg Tablet, 10 MG PO DAILY, #30 TAB 05/26/17 Pantoprazole* (Pantoprazole*) 40 Mg Tablet.dr, 40 MG PO AC BREAKFAST, TAB 05/26/17 Tamsulosin Hcl* (Tamsulosin Hcl*) 0.4 Mg Cap.er.24h, 0.4 MG PO QHS, CAP 05/26/17 Celecoxib* (Celebrex*) 200 Mg Capsule, 200 MG PO DAILY, CAP 05/26/17 Felodipine* (Felodipine*) 2.5 Mg Tab.sr.24h, 2.5 MG PO DAILY, TAB.SA 05/26/17 Atenolol* (Atenolol*) 25 Mg Tablet, 25 MG PO DAILY, #30 TAB 05/26/17 Lisinopril* (Lisinopril*) 5 Mg Tablet, 5 MG PO QHS, #30 TAB 05/26/17 Rosuvastatin Calcium* (Crestor*) 40 Mg Tablet, 40 MG PO QHS, #30 TAB 05/26/17 Discontinued Reported Medications Cholecalciferol (Vitamin D3) (VITAMIN D-3) 2,000 Unit Capsule, 1000 UNIT PO, CAP 05/26/17 Gabapentin (GABAPENTIN) 300 Mg/6 Ml Solution, 300 MG PO DAILY 05/26/17 Discontinued Scripts Tramadol HCl (Tramadol HCl) 50 Mg Tablet, 50 MG PO Q6 for MILD PAIN LEVEL 1-3 for 30 Days, #60 TAB Prov:MACHO LEWIS MD 05/27/17 Hydrocodone/Acetaminophen (Hydrocodon-Acetaminoph 7.5-325) 1 Each Tablet, 1 TAB PO Q6H Y for MODERATE PAIN LEVEL 4-6 for 30 Days, #60 TAB Prov:MACHO LEWIS MD 05/27/17 Aspirin (Aspir-Larissa) 325 Mg Tablet., 325 MG PO BID for 42 Days, #84 Prov:MACHO LEWIS MD 05/27/17 Allergies Allergies: Coded Allergies: No Known Allergy (Unverified , 08/25/17) PMhx/Soc History of Surgery: Yes (CAMPARTMENT SYNDROME SX, BACK SX, ANGIOGRAM ) Anesthesia Reaction: No Hx Neurological Disorder: No Hx Respiratory Disorders: Yes (SLEEP APNEA ) Hx Cardiac Disorders: Yes (CAD) Hx Psychiatric Problems: No Hx Miscellaneous Medical Probl: Yes (prostate CA, atherosclerotic heart disease ) Hx Alcohol Use: No Hx Substance Use: No Hx Tobacco Use: No Smoking Status: Never smoker FmHx Family History: coronary disease Physical Exam Vitals Vital Signs Date Time Temp Pulse Resp B/P Pulse Ox O2 Delivery O2 Flow Rate FiO2 08/25/17 20:22 42 22 131/66 97 Room Air 08/25/17 19:15 41 22 129/66 97 Room Air 08/25/17 16:46 98.6 47 24 137/62 97 Physical Exam Const: No acute distress Head: Atraumatic Eyes: Normal Conjunctiva ENT: Normal External Ears, Nose and Mouth. Neck: Full range of motion..~ No meningismus. Resp: Clear to auscultation bilaterally Cardio: Regular rate and rhythm, no murmurs Abd: Soft, non tender, non distended. Normal bowel sounds Skin: No petechiae or rashes Back: No midline or flank tenderness Ext: No cyanosis, or edema Neur: Awake and alert Psych: Normal Mood and Affect Result Diagram: 08/25/17182908/25/171829 Results 24 hrs Laboratory Tests Test 08/25/17 18:30 White Blood Count 6.010^3/ul Red Blood Count 3.2710^6/ul Hemoglobin 9.1g/dl Hematocrit 29.2% Mean Corpuscular Volume 89.3fl Mean Corpuscular Hemoglobin 27.8pg Mean Corpuscular Hemoglobin Concent 31.2g/dl Red Cell Distribution Width 14.8% Platelet Count 19877^3/UL Mean Platelet Volume 12.3fl Neutrophils % 57.6% Lymphocytes % 28.9% Monocytes % 9.1% Eosinophils % 3.7% Basophils % 0.5% Nucleated Red Blood Cells % 0.0/100WBC Neutrophils # 3.410^3/ul Lymphocytes # 1.710^3/ul Monocytes # 0.510^3/ul Eosinophils # 0.210^3/ul Basophils # 0.010^3/ul Nucleated Red Blood Cells # 0.010^3/ul Sodium Level 139mmol/L Potassium Level 4.2mmol/L Chloride Level 102mmol/L Carbon Dioxide Level 27mmol/L Anion Gap 14 Blood Urea Nitrogen 17mg/dl Creatinine 1.12mg/dl Glucose Level 115mg/dl Calcium Level 9.8mg/dl Creatine Kinase 139IU/L Creatine Kinase Index 1.8 Creatinine Kinase MB (Mass) 2.46ng/ml Troponin I < 0.012ng/ml Current Medications Medications (Trade) Dose Ordered Sig/Fide Route PRN Reason Start Time Stop Time Status Last Admin Dose Admin Aspirin (Aspirin) 162 mg ONCE STAT PO 08/25/17 17:55 08/25/17 17:56 DC 08/25/17 18:05 Nitroglycerin (Nitroglycerin 2% Oint) 1 inch ONCE STAT TD 08/25/17 17:55 08/25/17 17:56 DC Nitroglycerin (Nitroglycerin (Sl Tab) 0.4 Mg) 1 tab Q5M UP TO 3 DOSES PRN SL CHEST PAIN 08/25/17 18:00 Ondansetron HCl (Zofran Inj) 4 mg ER BRIDGE PRN IV NAUSEA AND/OR VOMITING 08/25/17 18:30 08/26/17 18:29 Acetaminophen (Tylenol Tab) 650 mg ER BRIDGE PRN PO MILD PAIN/FEVER 08/25/17 18:30 08/26/17 18:29 Procedures/MDM EKG read by me: Rate/Rhythm: Sinus bradycardia Intervals: Normal Impression: Sinus bradycardia without ischemia Chest x-ray shows no pneumonia or pneumothorax per radiology. Patient is a 77-year-old male with cardiac risk factors who presents with chest pain and shortness of breath. I am concerned for unstable angina given his history at this time. I believe the patient requires inpatient admission and will be admitted to the care of Dr. Mota. At this point I doubt pneumonia , pneumothorax, pulmonary embolism, or aortic dissection. However given the fact that he had a recent stress echo he may require cardiac catheterization to determine if his coronary vessels are patent. I will leave this up to the admitting doctor Dr. Mota. The patient may require cardiology consultation while admitted as well. He was given aspirin and nitroglycerin empirically. Departure Diagnosis: Primary Impression: Unstable angina Additional Impressions: Shortness of breath Chest pain Qualified Code: R07.9 - Chest pain, unspecified type Condition: ARTURO Cervantes MD Aug 25, 2017 20:35
[2017-08-25 20:45] VITALS: PULSE 42
[2017-08-25 20:54] VITALS: BP 145/63; RESP 19
[2017-08-25 21:10] VITALS: Ht 177.8 cm; Wt 96.1 kg
[2017-08-25] MEDS ORDERED: ZOLPIDEM 5 MG TAB PO PRN (22:00)
[2017-08-25] MEDS ORDERED: NACL 0.9% 3 ML SYG IV SCH (22:00)
[2017-08-25] MEDS: ZOLPIDEM 5 MG TAB PO PRN (23:06)
[2017-08-26] VITALS (35 sets, daily range): BP systolic 53–166; BP diastolic 37–73; PULSE 35–43; RESP 16–31
[2017-08-26] MEDS: SOD FERRIC GLUC COMPLX 125 MG in SOD CHLORIDE 0.9% 100 ML IVPB SCH ×2 (03:00→23:13)
[2017-08-26 08:15] LABS: TROPONIN-I 0.014 ng/ml (0.00-0.12)
[2017-08-26 08:18] LABS: CK-MB 1.62 ng/ml (0.0-2.4)
[2017-08-26] MEDS: ESCITALOPRAM 10 MG TAB PO SCH (08:39)
[2017-08-26] MEDS: ASPIRIN (EC) 81 MG TAB PO SCH (08:40)
[2017-08-26] MEDS: GABAPENTIN 300 MG CAP PO SCH (08:40)
[2017-08-26] MEDS: MULTIVITAMINS THERAPEUTIC TAB PO SCH (08:40)
[2017-08-26] MEDS: FELODIPINE (ER) 2.5 MG TAB PO SCH (08:40)
[2017-08-26] MEDS: PANTOPRAZOLE (EC) 40 MG TAB PO SCH (08:40)
[2017-08-26] MEDS: CHOLECALCIFEROL 1,000 UNIT TAB PO SCH (08:40)
[2017-08-26] MEDS ORDERED: UBIDECARENONE 100 MG PO SCH (09:00)
[2017-08-26] MEDS ORDERED: ATENOLOL 25 MG TAB PO SCH (09:00)
--- NOTE | 2017-08-26 09:11 | CONS ---
Date/Time of Note Date/Time of Note DATE: 08/26/17 TIME: 09:09 Assessment/Plan Assessment/Plan Chief Complaint/Hosp Course Impression: 77 y.o. with h/o of 3VCAD, presenting with unstable angina. pt with recent neg workup in office, however now with worsening symptoms. r/o for ACS, but given history and cont symptoms despite medical therapy recommend C possible PCI. pt aware of all risks benefits of procedure. does have anemia but not to degree that would expect this degree of symptoms. recommend cont eval for iron def anemia, this may result in staged PCI as well pending [facility] results. would cont asa 81 mg daily given no acute gi blood loss, cont statin and bp meds. holding atenolol given severe braeden in 40s case d/w pt, family at bedside, Dr. Mccloud, and primary trimmer sorter Dr. Samayoa Problems: Consultation Date/Type/Reason Admit Date/Time Aug 25, 2017 at 18:10 Date of Consultation: Aug 26, 2017 Type of Consultation: cardiology Reason for Consultation chest pain Referring Provider: FEI MENENDEZ MD Hx of Present Illness 77 y.o. with known cad on previous [facility] in , 2004 treated medically, htn, hld, anemia who has had progressive chest pain and dyspnea. pt states symptoms have present x 3 weeks, but have progressed. feels exertional chest pressure and sob, with diaphoresis at times. no n/v, jaw/arm pain. pain/sob occurs with walking/golfing, however other times can swim without symptoms. pt seen by primary trimmer sorter who i spoke with, he stated pt had supine bicycle stress, but hr only up to 80s. no ischemia on submax stress echo. pt was found to have anemia, eval by dr menendez showed iron def anemia, however pt cont to have progressive symptoms more severe on day of presentations. no pnd, orthopnea, edema. no palpitations. denies any bleeding in stool, nose, coughing up blood. ekg with sinus bradycardia without ischemic change.tele with hrs 40s-60s. sinus no block. trop neg x 3. cxr reviewed, clear no acut eabnl. Constitutional: no complaints Eyes: no complaints ENT: no complaints Respiratory: shortness of breath Cardiovascular: chest pain Gastrointestinal: no complaints Genitourinary: no complaints Musculoskeletal: no complaints Skin: no complaints Neurologic: no complaints Endocrine: no complaints Psychological: nl mood/affect, no complaints Immunologic: no complaints Past Medical History 1. Atherosclerotic heart disease, triple vessel, last angiogram in 2004. 2. Sleep apnea, uses CPAP machine. 3. Transaminitis due to a fatty liver. 4. Gastroesophageal reflux disease. 5. Falling episodes. 6. History of prostate cancer status post radiation treatment and now on Lupron. 7. Aortic stenosis. Moderate. Past Surgical History 1. Nose surgery. 2. Right calf surgery for compartment syndrome. 3. Lumbar spine surgery in 2013. 4. Right total hip replacement in April [address] Regis Spear. Family History Significant Family History: heart disease Social History Alcohol Use: none Smoking Status: Former smoker Drug Use: none Exam/Review of Systems Vital Signs Vitals Vital Signs Date Time Temp Pulse Resp B/P Pulse Ox O2 Delivery O2 Flow Rate FiO2 08/26/17 08:16 39 08/26/17 07:29 98.0 18 114/56 98 08/25/17 20:22 Room Air Intake and Output 08/25/17 08/25/17 08/26/17 15:00 23:00 07:00 Intake Total 360 ml Balance 360 ml Exam Constitutional: alert, oriented Psych: no complaints Head: normocephalic Eyes: EOMI, nl conjunctiva ENMT: nl external ears & nose Neck: non-tender, supple Respiratory: clear to auscultation, normal air movement Cardiovascular: nl pulses, regular rate and rhythm, systolic murmur, No edema, No irregular rhythm, No jugular venous distention (JVD) Gastrointestinal: non-tender, soft Musculoskeletal: nl extremities to inspection, nl gait and stance Extremities: normal pulses Neurological: FUR STORAGE CLERK II-XII intact Skin: nl turgor Results Result Diagram: 08/25/17 1830 08/25/17 1830 Results 24 hrs Laboratory Tests Test 08/25/17 18:30 08/26/17 07:04 White Blood Count 6.0 Red Blood Count 3.27 L Hemoglobin 9.1 L Hematocrit 29.2 L Mean Corpuscular Volume 89.3 Mean Corpuscular Hemoglobin 27.8 L Mean Corpuscular Hemoglobin Concent 31.2 L Red Cell Distribution Width 14.8 H Platelet Count 161 Mean Platelet Volume 12.3 H Neutrophils % 57.6 Lymphocytes % 28.9 Monocytes % 9.1 Eosinophils % 3.7 Basophils % 0.5 Nucleated Red Blood Cells % 0.0 Neutrophils # 3.4 Lymphocytes # 1.7 Monocytes # 0.5 Eosinophils # 0.2 Basophils # 0.0 Nucleated Red Blood Cells # 0.0 Sodium Level 139 Potassium Level 4.2 Chloride Level 102 Carbon Dioxide Level 27 Anion Gap 14 Blood Urea Nitrogen 17 Creatinine 1.12 Glucose Level 115 Calcium Level 9.8 Creatine Kinase 139 92 Creatine Kinase Index 1.8 1.8 Creatinine Kinase MB (Mass) 2.46 H 1.62 Troponin I < 0.012 0.014 Medications Medications Current Medications Acetaminophen (Tylenol Tab) 650 mg Q6H PRN PO PAIN LEVEL 1-3 OR FEVER; Start at 22:00 Zolpidem Tartrate (Ambien) 5 mg QHS PRN PO INSOMNIA; Start 08/25/17 at 22:00 Aspirin (Halfprin) 81 mg DAILY PO Last administered on 08/26/17 08:40; Admin Dose 81 MG; Start 08/26/17 at 09:00 Cholecalciferol (Vitamin D) 1,000 unit DAILY PO Last administered on 08/26/17 08:40; Admin Dose 1,000 UNIT; Start 08/26/17 at 09:00 Docusate Sodium (Colace) 100 mg QHS PO ; Start 08/26/17 at 21:00 Escitalopram Oxalate (Lexapro) 10 mg DAILY PO Last administered on 08/26/17 08 :39; Admin Dose 10 MG; Start 08/26/17 at 09:00 Felodipine (Plendil) 2.5 mg DAILY PO Last administered on 08/26/17 08:40; Admin Dose 2.5 MG; Start 08/26/17 at 09:00 Gabapentin (Neurontin) 300 mg QAM PO Last administered on 08/26/17 08:40; Admin Dose 300 MG; Start 08/26/17 at 09:00 Lisinopril (Zestril) 5 mg QHS PO ; Start 08/26/17 at 21:00 Multivitamins Therapeutic (Theragran) 1 tab DAILY PO Last administered on 08:40; Admin Dose 1 TAB; Start 08/26/17 at 09:00 Polyethylene Glycol (Miralax) 8.5 gm QHS PO ; Start 08/26/17 at 21:00 Tamsulosin HCl (Flomax) 0.4 mg QHS PO ; Start 08/26/17 at 21:00 Zolpidem Tartrate 10 mg 10 mg QHS PRN PO INSOMNIA Last administered on 23:06; Admin Dose 10 MG; Start 08/25/17 at 22:00 Ferric Sodium Gluconate Complex/ Sodium Chloride (Ferrlecit/NS) 110 ml @ 100 mls/hr Q24H IVPB Last administered on 08/26/17 03:00; Admin Dose 100 MLS/HR; Start 08/25/17 at 23:00; Stop 08/28/17 at 00:05 Procedures Procedures ekg/tele/cxr reviewed per hpi MARIA ISABEL FOLEY Aug 26, 2017 09:11
--- NOTE | 2017-08-26 09:11 | PN ---
Date/Time of Note Date/Time of Note DATE: 08/26/17 TIME: 09:07 Assessment/Plan VTE Prophylaxis VTE Prophylaxis Intervention: SCD's Lines/Catheters IV [facility]ter [facility] Saline Lock Assessment/Plan Chief Complaint/Hosp Course 1. Coronary artery disease with exertional chest pain and chest pressure. Troponins are negative for acute [place]. He has no chest pain or shortness of breath this morning but he is in bed at rest. He has been seen by cardiology and they recommended a coronary angiogram. Hopefully that will be done this afternoon. 2. Anemia, due to iron deficiency, rule out GI bleeding 3. Hyperlipidemia, prostate cancer status post radiation therapy 4. Right total hip replacement in April of this year Problems: Subjective 24 Hr Interval Summary Free Text/Dictation He denies chest pain or shortness of breath today. He has been resting in bed and has not been very active. Constitutional: no complaints Respiratory: no complaints Cardiovascular: no complaints Gastrointestinal: no complaints Genitourinary: no complaints Neurologic: no complaints Exam/Review of Systems Vital Signs Vitals Vital Signs Date Time Temp Pulse Resp B/P Pulse Ox O2 Delivery O2 Flow Rate FiO2 08/26/17 08:16 39 08/26/17 07:29 98.0 18 114/56 98 08/25/17 20:22 Room Air Intake and Output 08/25/17 08/25/17 08/26/17 15:00 23:00 07:00 Intake Total 360 ml Balance 360 ml Exam Constitutional: alert, oriented, well developed Respiratory: clear to auscultation, normal air movement Cardiovascular: edema, murmurs/extra sounds, nl pulses, regular rate and rhythm Gastrointestinal: soft Extremities: edema Results Result Diagram: 08/25/17 1830 08/25/17 1830 Results 24 hrs Laboratory Tests Test 08/25/17 18:30 08/26/17 07:04 White Blood Count 6.0 Red Blood Count 3.27 L Hemoglobin 9.1 L Hematocrit 29.2 L Mean Corpuscular Volume 89.3 Mean Corpuscular Hemoglobin 27.8 L Mean Corpuscular Hemoglobin Concent 31.2 L Red Cell Distribution Width 14.8 H Platelet Count 161 Mean Platelet Volume 12.3 H Neutrophils % 57.6 Lymphocytes % 28.9 Monocytes % 9.1 Eosinophils % 3.7 Basophils % 0.5 Nucleated Red Blood Cells % 0.0 Neutrophils # 3.4 Lymphocytes # 1.7 Monocytes # 0.5 Eosinophils # 0.2 Basophils # 0.0 Nucleated Red Blood Cells # 0.0 Sodium Level 139 Potassium Level 4.2 Chloride Level 102 Carbon Dioxide Level 27 Anion Gap 14 Blood Urea Nitrogen 17 Creatinine 1.12 Glucose Level 115 Calcium Level 9.8 Creatine Kinase 139 92 Creatine Kinase Index 1.8 1.8 Creatinine Kinase MB (Mass) 2.46 H 1.62 Troponin I < 0.012 0.014 Medications Medications Current Medications Acetaminophen (Tylenol Tab) 650 mg Q6H PRN PO PAIN LEVEL 1-3 OR FEVER; Start at 22:00 Zolpidem Tartrate (Ambien) 5 mg QHS PRN PO INSOMNIA; Start 08/25/17 at 22:00 Aspirin (Halfprin) 81 mg DAILY PO Last administered on 08/26/17 08:40; Admin Dose 81 MG; Start 08/26/17 at 09:00 Cholecalciferol (Vitamin D) 1,000 unit DAILY PO Last administered on 08/26/17 08:40; Admin Dose 1,000 UNIT; Start 08/26/17 at 09:00 Docusate Sodium (Colace) 100 mg QHS PO ; Start 08/26/17 at 21:00 Escitalopram Oxalate (Lexapro) 10 mg DAILY PO Last administered on 08/26/17 08 :39; Admin Dose 10 MG; Start 08/26/17 at 09:00 Felodipine (Plendil) 2.5 mg DAILY PO Last administered on 08/26/17 08:40; Admin Dose 2.5 MG; Start 08/26/17 at 09:00 Gabapentin (Neurontin) 300 mg QAM PO Last administered on 08/26/17 08:40; Admin Dose 300 MG; Start 08/26/17 at 09:00 Lisinopril (Zestril) 5 mg QHS PO ; Start 08/26/17 at 21:00 Multivitamins Therapeutic (Theragran) 1 tab DAILY PO Last administered on 08:40; Admin Dose 1 TAB; Start 08/26/17 at 09:00 Polyethylene Glycol (Miralax) 8.5 gm QHS PO ; Start 08/26/17 at 21:00 Tamsulosin HCl (Flomax) 0.4 mg QHS PO ; Start 08/26/17 at 21:00 Zolpidem Tartrate 10 mg 10 mg QHS PRN PO INSOMNIA Last administered on 23:06; Admin Dose 10 MG; Start 08/25/17 at 22:00 Ferric Sodium Gluconate Complex/ Sodium Chloride (Ferrlecit/NS) 110 ml @ 100 mls/hr Q24H IVPB Last administered on 08/26/17 03:00; Admin Dose 100 MLS/HR; Start 08/25/17 at 23:00; Stop 08/28/17 at 00:05 FEI MENENDEZ MD Aug 26, 2017 09:11
[2017-08-26] MEDS ORDERED: SOD CHLORIDE 0.9% 1,000 ML IV SCH ×2 (09:15→16:25)
[2017-08-26] MEDS ORDERED: DIAZEPAM 5 MG TAB PO ONE (09:30)
[2017-08-26] MEDS ORDERED: FENTAnyl 50 MCG/ML VIAL ONE (14:56)
[2017-08-26] MEDS ORDERED: NITROGLYCERIN (IC) 100 MCG/ML INJ ONE (14:56)
[2017-08-26] MEDS ORDERED: LIDOCAINE 1% (MDV) 20 ML INJ ONE (14:56)
[2017-08-26] MEDS ORDERED: VERAPAMIL 5 MG INJ ONE (14:56)
[2017-08-26] MEDS ORDERED: MIDAZOLAM 1 MG/ML 2 ML INJ ONE (14:56)
--- NOTE | 2017-08-26 15:04 | RADRPT ---
Echocardiogram Report Patient Name: JUS JACQUES Gender: Male Date: 1940 Study Date: 26-Aug-2017 Children'S Service Worker: Donovan Pinto [facility] Location: [address] Ref. Physician: BRAIN FOLEY Quality: Good Procedures: Transthoracic echocardiogram with complete 2D, M-Mode, and doppler examination. Indications: Chest Pain. 2D/M Mode Doppler Measurement Value Normal Ranges Measurement Value Normal Ranges LVIDd 2D 4.3 3.5 - 5.6 cm MIKEL Vmax 1.4 cm2 LVIDs 2D 2.1 2.1 - 4.1 cm MIKEL VTI 1.6 cm2 FS 2D 50.7 % AV Mean Paco 2.5 m/sec LVPWd 2D 1.1 0.6 - 1.1 cm AV Mean PG 30.0 mmHg IVSd 2D 1.1 0.6 - 1.1 cm AV Peak Paco 3.7 m/sec IVS/LVPW 2D 1.0 AV Peak PG 56.0 mmHg AoR Diam 2D 2.6 2.0 - 3.7 cm AV VTI 94.9 cm LA/Ao 2D 2 0 - 1 LVOT Mean Paco 1.2 m/sec EDV 2D 77.3 cm3 LVOT Mean PG 6.0 mmHg ESV 2D 9.3 cm3 LVOT Peak Paco 1.5 m/sec LA Dimen 2D 4.6 2.3 - 4.0 cm LVOT Peak PG 9.0 mmHg LVOT Diam 2.1 cm LVOT VTI 43.3 cm LVOT Area 3.5 cm2 MV E Peak Paco 0.8 m/sec MV A Peak Paco 0.9 m/sec MV E/A 0.9 MV Decel Time 215 msec MV E/A 0.9 TR Peak Paco 3.0 m/sec TR Peak PG 36.0 mmHg RVSP 44.0 mmHg Findings Left Ventricle: Normal left ventricular systolic function. Normal left ventricular cavity size. Mild concentric left ventricular hypertrophy. Ejection fraction is visually estimated at 65 %. Tissue Doppler/Mitral Doppler indices are consistent with impaired relaxation (Stage I diastolic dysfunction). Right Ventricle: Normal right ventricular size. Normal right ventricular systolic function. Left Atrium: There is mild enlargement of left atrium. Right Atrium: The right atrium is normal in size. Mitral Valve: Normal appearance of the mitral valve. Mild mitral annular calcification. Trace mitral regurgitation. Aortic Valve: Moderate aortic stenosis. Aortic valve Max velocity 3.74 m/sec. Max PG 56.00 mmHg. Mean PG 30.00 mmHg. Aortic valve area 1.60 cm2. Aortic cusps appear moderately calcified. Trace aortic valve regurgitation. Tricuspid Valve: Normal appearance of the tricuspid valve. Right ventricular systolic pressure is consistent with moderate pulmonary hypertension. Estimated peak PA systolic pressure 44 mmHg. There is mild tricuspid regurgitation. Pulmonic Valve: Normal pulmonic valve appearance. Pericardium: Normal pericardium with no significant pericardial effusion. Aorta: Normal aortic root. IVC: Dilated IVC with respiratory collapse consistent with elevated right atrial pressure. Conclusions Normal left ventricular systolic function. Normal left ventricular cavity size. Mild concentric left ventricular hypertrophy. Ejection fraction is visually estimated at 65 %. Tissue Doppler/Mitral Doppler indices are consistent with impaired relaxation (Stage I diastolic dysfunction). Normal right ventricular size. Normal right ventricular systolic function. There is mild enlargement of left atrium. Moderate aortic stenosis. Aortic valve Max velocity 3.74 m/sec. Max PG 56.00 mmHg. Mean PG 30.00 mmHg. Aortic valve area 1.60 cm2. Aortic cusps appear moderately calcified. Trace aortic valve regurgitation. Normal appearance of the tricuspid valve. Right ventricular systolic pressure is consistent with moderate pulmonary hypertension. Estimated peak PA systolic pressure 44 mmHg. There is mild tricuspid regurgitation. Dilated IVC with respiratory collapse consistent with elevated right atrial pressure. No Vegetation, masses, or thrombi seen. Electronically Signed By: Brain Foley 26-Aug-2017 15:03:27 -0700 Patient Name: JUS JACQUES Study Date: 26-Aug-2017 [id number]
[2017-08-26] MEDS ORDERED: AL HYDROX/MG HYDROX/SIMETH 30 ML CUP PO PRN (16:30)
[2017-08-26] MEDS ORDERED: OXYCODONE/ACETAMINOPHEN (5/325) TAB PO PRN (16:30)
[2017-08-26] MEDS ORDERED: ACETAMINOPHEN 325 MG TAB PO PRN (16:30)
[2017-08-26] MEDS ORDERED: CLOPIDOGREL 300 MG TAB PO ONE (16:30)
[2017-08-26] MEDS ORDERED: ONDANSETRON 4 MG INJ IV PRN (16:30)
--- NOTE | 2017-08-26 16:49 | OPR ---
Date/Time of Note Date/Time of Note DATE: 08/26/17 TIME: 16:23 Operative Report Free Text/Dictation PROCEDURE PERFORMED 1. Left heart catheterization 2. Administration of Moderate Sedation PREOPERATIVE DIAGNOSES: 1. Unstable Angina 2. Coronary artery disease 3. Anemia POSTOPERATIVE DIAGNOSES: 1. Coronary artery disease, multivessel. NURSE PRACTITIONER ADULT: Brain Foley MD PRIMARY CARE PHYSICIAN: Murtaza Brandt MD PROCEDURE DESCRIPTION: Right wrist was prepped and draped in usual sterile fashion and anesthetized with 1% lidocaine solution. A 6-Scottish slender sheath was placed in the right radial artery without difficulty using through and through technique under ultrasound guidance. IA nitoglycerine and verapamil given. IV heparin given A 6-Scottish TIG diagnostic catheter was advanced to the ascending aorta over a wire and cineangiography was performed of the left and right coronary arteries TIG was then advanced over wire across aortic valve into the LV and pressure measured. All catheters and wires were then removed. The patient tolerated the procedure well and was without any chest pain at completion of procedure. Hemostasis was obtained of the right radial artery with a TR band. Estimated blood loss was less than 10 mL. No specimens were obtained: MODERATE SEDATION SUMMARY: RN was dedicated to monitoring the patient's level of consciousness and physiological status while I administered moderate sedation. Total intraprocedural time was greater than 15 min HEMODYNAMICS: LVEDP was 22 mmHg. 30mmHg Lv-Ao gradient noted on pullback. FINDINGS: 1. Left main coronary artery: Long large artery. Diffuse disease 20%. Distal LM is aneurysmal 2. Left anterior descending artery: Proximal LAD is aneurysmal. Mid LAD is tortuous with 80% stenosis DESTINY 3 flow. Distal LAD is tortuous with area of severe tortuosity feeding the apical LAD, it is unclear if this a the [place] artery versus a well developed collateral. D1 is a very small sized artery, does appear to have severe 99% stenosis. D2 and D3 are small without disease. 3. Right coronary artery: Very Large dominant vessel. Proximal RCA is very large and ecstatic, aneurysmal Proximal RCA is aneurysmal with serial 30 and 40 % stenosis. Mid RCA is also very large with ectasia, and anuerysmal in segments with 50% stenosis. Distal RCA is large ectatic with 40% stenosis. Bifurcates to large rPL and rPDA arteries. rPL has 40% diffuse disease, ectasia. rPDA is ectatic with diffuse 40% disease, distal rPDA is still a large vessel with focal 95% stenosis and DESTINY 3 flow. 4. Left circumflex artery: Large non dominant, mid with 40% stenosis. followed by area of ectasia, distal. there is 50% stenosis at origin of distal LCx. 5. Ramus Intermedius- Average sized artery. Tortuosu with 50% stenosis in mid vessel. gives multiple branches with mild diffuse disease. CONCLUSIONS: 1. Multivessel coronary artery disease involving distal WIRE DRAWING MACHINE OPERATOR and mid LAD. 4. Moderately elevated LV filling pressures 3. Moderate aortic valve stenosis. RECOMMENDATIONS: 1. continue aspirin 81 mg p.o. daily. 2. continue clopidogrel 75mg po daily 3. continued maximal medical therapy with statin therapy. 4. holding bb due to bradycardia, cont nitrates as needed Given unexplained anemia and patient with DESTINY 3 flow in all vessel/chest pain free without troponin leak, would recommend r/o GI blood loss as cause of anemia as PCI would require anticoag followed by uninterrupted DAPT therapy. would recommend cont inpt evaluation of anemia, if tolerating no active source of bleeding, will plan on staged PCI of RCA, possibly LAD as well. Ok to proceed with low risk endoscopy without further cardiac evaluation. Preoperative Diagnosis CAD Postoperative Diagnosis CAD Surgeon see signature line Frit Coater n/a Anesthesia Type: moderate sedation Anesthesiologist: BRAIN FOLEY Estimated Blood Loss: 0 - 10 ml's Transfusion none Specimen none Grafts/Implants none Complications none Procedure Description see above BRAIN FOLEY Aug 26, 2017 16:44
[2017-08-26] MEDS: DOCUSATE SODIUM 100 MG CAP PO SCH (20:50)
[2017-08-26] MEDS: TAMSULOSIN (SR) 0.4 MG CAP PO SCH (20:50)
[2017-08-26] MEDS: POLYETHYLENE GLYCOL 17 GM PACKET PO SCH (20:50)
[2017-08-26] MEDS: LISINOPRIL 5 MG TAB PO SCH (20:50)
[2017-08-27] VITALS (11 sets, daily range): BP systolic 97–125; BP diastolic 54–59; PULSE 38–49; RESP 16–21
[2017-08-27 06:47] LABS: BASOPHILS % 0.5 % (0.0-2.0); EOSINOPHILS # 0.2 10^3/ul (0.0-0.5); EOSINOPHILS % 4.6 % (0.0-7.0); HEMATOCRIT 28.1 % (42.0-52.0); HEMOGLOBIN 8.8 g/dl (14.0-18.0); LYMPHOCYTES # 1.2 10^3/ul (0.8-2.9); LYMPHOCYTES % 30.4 % (15.0-51.0); MEAN CORPUSCULAR HGB CONC 31.3 g/dl (32.0-37.0); MEAN CORPUSCULAR VOLUME 89.5 fl (82.0-101.0); MEAN PLATELET VOLUME 12.5 fl (7.4-10.4); MONOCYTE # 0.4 10^3/ul (0.3-0.9); MONOCYTES % 10.8 % (0.0-11.0); NEUTROPHIL # 2.1 10^3/ul (1.6-7.5); NEUTROPHILS % 53.4 % (39.0-77.0); PLATELET COUNT 131 10^3/UL (140-415); RED BLOOD COUNT 3.14 10^6/ul (4.70-6.10); RED CELL DISTRIBUTION WIDTH 15.5 % (11.5-14.5); WHITE BLOOD COUNT 3.9 10^3/ul (4.8-10.8)
[2017-08-27 07:19] LABS: ALBUMIN 3.9 g/dl (3.3-4.9); ALBUMIN/GLOBULIN RATIO 1.05; BILIRUBIN,INDIRECT 0.3 mg/dl (0-1.1); BILIRUBIN,TOTAL 0.3 mg/dl (0.2-1.3); CALCIUM 9.5 mg/dl (8.4-10.2); CREATININE 1.01 mg/dl (0.61-1.24); PHOSPHORUS 4.8 mg/dl (2.5-4.9); POTASSIUM 4.2 mmol/L (3.5-5.1); TOTAL PROTEIN 7.6 g/dl (6.1-8.1)
[2017-08-27] MEDS: PANTOPRAZOLE (EC) 40 MG TAB PO SCH (07:52)
[2017-08-27] MEDS: FELODIPINE (ER) 2.5 MG TAB PO SCH (08:05)
[2017-08-27] MEDS: ASPIRIN (EC) 81 MG TAB PO SCH (08:06)
[2017-08-27] MEDS: GABAPENTIN 300 MG CAP PO SCH (08:06)
[2017-08-27] MEDS: CHOLECALCIFEROL 1,000 UNIT TAB PO SCH (08:06)
[2017-08-27] MEDS: ESCITALOPRAM 10 MG TAB PO SCH (08:06)
[2017-08-27] MEDS: MULTIVITAMINS THERAPEUTIC TAB PO SCH (08:06)
--- NOTE | 2017-08-27 08:16 | HP ---
DATE OF ADMISSION: 08/25/2017 REASON FOR ADMISSION: Chest pain. HISTORY OF PRESENT ILLNESS: This 77-year-old man has been having increasing exertional chest pain and dyspnea on exertion. The patient was recently seen by his export documents clerk, Dr. Chacho Samayoa in [place], [place], and had a stress echocardiogram by Dr. Samayoa. The patient did not have chest pain or changes on the echocardiogram or EKG consistent with ischemia. The patient only reached 80 beats per minute on the stress test. The patient had laboratory tests done which found him to be anemic with a hemoglobin of 9.3. The patient denies seeing blood in his stool. He does have regular bowel movements with intermittent constipation and diarrhea. The patient did bring in a stool sample to my office before this admission which was found to be positive for occult blood. The patient does have a history of coronary artery disease and has been treated medically for this problem. He has never had an angioplasty, stent placement or coronary artery surgery. PAST MEDICAL HISTORY: Remarkable for: 1. Atherosclerotic heart disease, triple vessel, last angiogram in 2004. 2. Sleep apnea, uses CPAP machine. 3. Transaminitis due to a fatty liver. 4. Gastroesophageal reflux disease. 5. Falling episodes. 6. History of prostate cancer status post radiation treatment and now on Lupron. 7. Aortic stenosis. Moderate. PAST SURGICAL HISTORY: 1. Nose surgery. 2. Right calf surgery for compartment syndrome. 3. Lumbar spine surgery in 2013. 4. Right total hip replacement in April [address] Regis Spear. FAMILY HISTORY: Father is at age 56 of coronary artery disease. Brother is of cancer of the prostate. SOCIAL HISTORY: He does not smoke. He is a former smoker. He has not smoked in 10 years. Drinks alcohol socially. 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 MEDICATIONS: Currently include: 1. Multivitamins 1 daily. 2. Coenzyme Q10 at 200 mg a day. 3. Fluticasone nasal. Intranasally once a day. 4. Tamsulosin 0.4 mg a day. 5. Pantoprazole 40 mg a day. 6. Lexapro 10 mg a day. 7. Celebrex 200 mg a day. 8. Lidoderm patch once a day. 9. Lupron extended release every 3 months. 10. Lisinopril 5 mg a day. 11. Plendil 2.5 mg a day. 12. Gabapentin 300 mg orally once a day. 13. Crestor 40 mg once a day. 14. Zolpidem 10 mg a day. 15. MiraLAX powder once a day. 16. Atenolol 25 mg a day. ALLERGIES: HE HAS NO KNOWN DRUG ALLERGIES. REVIEW OF SYSTEMS: CONSTITUTIONAL: No chills, no weight gain, no loss of appetite, no fever. He does have some weakness and fatigue. No weight loss. CARDIORESPIRATORY: Dyspnea on exertion. He does have exertional chest pressure. He does have slight edema. He has a heart murmur. GASTROINTESTINAL: He does have constipation and occasionally diarrhea. Denies blood in his stools. No hemorrhoids. GENITOURINARY: Prostate cancer. PHYSICAL EXAMINATION: GENERAL APPEARANCE: At this time, reveals a well-developed man in no apparent distress. VITAL SIGNS: Temperature 98.2, blood pressure 130/70, heart rate 50. HEENT: Head normocephalic. Eyes extraocular muscles intact. Nose and mouth are normal. NECK: Supple. No neck vein distention. LUNGS: Clear to auscultation. HEART: Regular rhythm with a 2/6 systolic ejection murmur, slow heart rate. ABDOMEN: Soft, nontender. No masses or megaly. EXTREMITIES: Trace pedal edema. Pedal pulses are 2 plus bilaterally. NEUROLOGIC: Grossly intact. IMPRESSION: 1. Chest pain. He has had increasing exertional chest pain and shortness of breath. He does have a history of coronary artery disease. He did have a recent stress test, which did not show evidence of ischemia; however, his heart rate never got above 80. 2. Anemia. The patient has had a decrease in his hemoglobin. Some of this may be related to radiation therapy for his prostate cancer and the fact that he had a hip surgery with hip replacement in April 2017. He denies seeing blood in his stool; however, he has had a recent guaiac-positive stool done at my office. 3. Hypertension. 4. Hyperlipidemia. 5. Malignancy of the prostate gland. 6. Right artificial hip joint. 7. Aortic stenosis. PLAN: 1. Cardiology consultation. Called Dr. Brain Humphries who will evaluate the patient. The patient may need a cardiac catheterization. His troponin isoenzymes are negative. 2. Anemia with guaiac-positive stools and iron deficiency. He will be seen by Dr. Niles Mcwilliams, his epitaxial reactor operator. I will give the patient intravenous iron. 3. Cardiac monitoring on telemetry floor. Dictated By: Murtaza Mason MD /anastasiia/lorraine /Document#: [id number]
[2017-08-27] MEDS ORDERED: CLOPIDOGREL 75 MG TAB PO SCH (09:00)
[2017-08-27] MEDS ORDERED: ASPIRIN (EC) 81 MG TAB PO SCH (09:00)
--- NOTE | 2017-08-27 11:35 | PN ---
Date/Time of Note Date/Time of Note DATE: 08/27/17 TIME: 11:28 SUBJECTIVE: Patient denies any chest pains dyspnea palpitations has no significant pain in right radial area from angiogram. Denies seeing any bloody stools in the past or dark stools. Chart, medications and laboratory studies reviewed. ROS: Patient denied any fevers, chills, weight loss, nausea, vomiting, diarrhea, constipation, cough, hemoptysis, dysuria, hematuria, nocturia, any neurologic symptoms, headache, any chest pains, dyspnea, PND, orthopnea, leg edema, or palpitations. All other review of systems were normal. OBJECTIVE: Vital signs please see chart. HEENT; no JVD, no HJR, carotids 2 over 4+ without bruits. Chest: Clear to auscultation and percussion, no rales, wheezes or rhonchi. Cardiac: S4, S1, S2 with normal physiologic splitting, 2/6 early to mid systolic ejection murmur, no rub click or diastolic murmur noted. Abdominal: Bowel sounds positive, soft nontender, no abdominal bruit noted, no hepatosplenomegaly. Extremities: No cyanosis, clubbing, or edema. Negative Homans sign or palpable cords. Right wrist without ecchymosis or hematoma normal Silvio's test. Pulses: 2/4 pulses diffusely no bruits noted. LABORATORY STUDIES; White count 3.9, hemoglobin 8.8, hematocrit 28.1, platelets 131, electrolytes BUN/creatinine normal, AST elevated 90. Chest x-ray cardiomegaly no heart failure no wide mediastinum. EKG sinus bradycardia at 44 beats a minute, first-degree AV block no acute changes. Telemetry revealed sinus bradycardia 40s-50s no prolonged pauses no ectopy. ASSESSMENT: 1. Coronary artery disease 2 vessel significant stenosis mid LAD and mid to distal PDA with several coronary aneurysms noted. 2. Amagbl-[id number] unclear etiology, consider radiation proctitis. 3. 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 4. Mildly elevated liver tests due to fatty liver. 5. Moderate aortic stenosis. 6. Hyperlipidemia. 7. Obstructive sleep apnea on CPAP. 8 History of prostate cancer with radiation therapy and currently on Lupron. PLAN: 1. Increase Plendil to 2.5 mg twice a day, continue aspirin and low-dose lisinopril. 2. Awaiting GI consultation for clearance with angioplasty and stenting scheduled for Tuesday morning at 730. 3. Follow laboratory studies and EKG. FAY CARDENAS MD Aug 27, 2017 11:35
--- NOTE | 2017-08-27 13:44 | PN ---
Date/Time of Note Date/Time of Note DATE: 08/27/17 TIME: 13:41 Assessment/Plan VTE Prophylaxis VTE Prophylaxis Intervention: ambulation Lines/Catheters IV C[facility]ter Type [facility]from [facility] Saline Lock Assessment/Plan Chief Complaint/Hosp Course 1. Coronary artery disease 2 vessel significant stenosis mid LAD and mid to distal PDA with several coronary aneurysms noted.s/p angio yesterday and tenetaively scheduled for anigioplaty/ stent on tuesday. currently asymptoatic 2. Nifevr-Dsbewdykh-ymtjgnos unclear etiology, consider radiation proctitis. for gi eval with dr sousa in am. started on iv iron 3. 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 4. Mildly elevated liver tests due to fatty liver. 5. Moderate aortic stenosis. clincally compensated 6. Hyperlipidemia.on statin 7. Obstructive sleep apnea on CPAP. 8 History of prostate cancer with radiation therapy and currently on Lupron. 9-pancytopenia: ? chronicity/ will review old labs for comparison. anemia may be marrow issue rather than gi issue although he is ob positive 10 htn: on meds and bp low. will try to keep bp > 100 to avoid PALAK given angio x 2 Problems: Subjective 24 Hr Interval Summary Free Text/Dictation feels well. no cp or sob. no groin pain. denies any gi sx/ dark stool etc Exam/Review of Systems Vital Signs Vitals Vital Signs Date Time Temp Pulse Resp B/P Pulse Ox O2 Delivery O2 Flow Rate FiO2 08/27/17 12:33 46 08/27/17 11:16 98.7 20 97/54 96 08/26/17 18:41 Nasal Cannula 08/26/17 18:26 2.0 Intake and Output 08/26/17 08/26/17 08/27/17 15:00 23:00 07:00 Intake Total 120 ml 310 ml Balance 120 ml 310 ml Exam Constitutional: alert, oriented, well developed Psych: no complaints Head: atraumatic, normocephalic Eyes: nl conjunctiva Neck: jvd, non-tender, supple Respiratory: clear to auscultation Cardiovascular: edema, nl pulses, regular rate and rhythm Gastrointestinal: non-tender, soft Results Result Diagram: 08/27/17 0601 08/27/17 0601 Results 24 hrs Laboratory Tests Test 08/27/17 06:01 White Blood Count 3.9 #L Red Blood Count 3.14 L Hemoglobin 8.8 L Hematocrit 28.1 L Mean Corpuscular Volume 89.5 Mean Corpuscular Hemoglobin 28.0 L Mean Corpuscular Hemoglobin Concent 31.3 L Red Cell Distribution Width 15.5 H Platelet Count 131 L Mean Platelet Volume 12.5 H Neutrophils % 53.4 Lymphocytes % 30.4 Monocytes % 10.8 Eosinophils % 4.6 Basophils % 0.5 Nucleated Red Blood Cells % 0.0 Neutrophils # 2.1 Lymphocytes # 1.2 Monocytes # 0.4 Eosinophils # 0.2 Basophils # 0.0 Nucleated Red Blood Cells # 0.0 Sodium Level 141 Potassium Level 4.2 Chloride Level 106 Carbon Dioxide Level 28 Anion Gap 11 Blood Urea Nitrogen 12 Creatinine 1.01 Glucose Level 105 Calcium Level 9.5 Phosphorus Level 4.8 Magnesium Level 2.0 Total Bilirubin 0.3 Direct Bilirubin 0.00 Indirect Bilirubin 0.3 Aspartate Amino Transf (AST/SGOT) 90 H Alanine Aminotransferase (ALT/SGPT) 64 Alkaline Phosphatase 119 Total Protein 7.6 Albumin 3.9 Globulin 3.70 H Albumin/Globulin Ratio 1.05 Medications Medications Current Medications Acetaminophen (Tylenol Tab) 650 mg Q6H PRN PO FEVER; Start 08/25/17 at 22:00 Zolpidem Tartrate (Ambien) 5 mg QHS PRN PO INSOMNIA; Start 08/25/17 at 22:00 Aspirin (Halfprin) 81 mg DAILY PO Last administered on 08/27/17 08:06; Admin Dose 81 MG; Start 08/26/17 at 09:00 Cholecalciferol (Vitamin D) 1,000 unit DAILY PO Last administered on 08/27/17 08:06; Admin Dose 1,000 UNIT; Start 08/26/17 at 09:00 Docusate Sodium (Colace) 100 mg QHS PO Last administered on 08/26/17 20:50; Admin Dose 100 MG; Start 08/26/17 at 21:00 Escitalopram Oxalate (Lexapro) 10 mg DAILY PO Last administered on 08/27/17 08 :06; Admin Dose 10 MG; Start 08/26/17 at 09:00 Gabapentin (Neurontin) 300 mg QAM PO Last administered on 08/27/17 08:06; Admin Dose 300 MG; Start 08/26/17 at 09:00 Lisinopril (Zestril) 5 mg QHS PO Last administered on 08/26/17 20:50; Admin Dose 5 MG; Start 08/26/17 at 21:00 Multivitamins Therapeutic (Theragran) 1 tab DAILY PO Last administered on 08:06; Admin Dose 1 TAB; Start 08/26/17 at 09:00 Polyethylene Glycol (Miralax) 8.5 gm QHS PO Last administered on 08/26/17 20: 50; Admin Dose 8.5 GM; Start 08/26/17 at 21:00 Tamsulosin HCl (Flomax) 0.4 mg QHS PO Last administered on 08/26/17 20:50; Admin Dose 0.4 MG; Start 08/26/17 at 21:00 Zolpidem Tartrate 10 mg 10 mg QHS PRN PO INSOMNIA Last administered on 23:06; Admin Dose 10 MG; Start 08/25/17 at 22:00 Ferric Sodium Gluconate Complex/ Sodium Chloride (Ferrlecit/NS) 110 ml @ 100 mls/hr Q24H IVPB Last administered on 08/26/17 23:13; Admin Dose 100 MLS/HR; Start 08/25/17 at 23:00; Stop 08/28/17 at 00:05 Miscellaneous Information (* Miscellaneous Pharmacy Order) HOLD all METFORMIN ... ONCE XX ; Start 08/26/17 at 16:30; Stop 08/28/17 at 16:29 Acetaminophen (Tylenol Tab) 650 mg Q4H PRN PO NON-CARDIAC PAIN LEVEL 1-3; Start 08/26/17 at 16:30 Oxycodone/ Acetaminophen (Percocet (5/ 325)) 1 tab Q4H PRN PO REPORTED NON- CARDIAC PAIN 4-7; Start 08/26/17 at 16:30 Al Hydrox/Mg Hydrox/Simethicone (Mag-Al Plus) 30 ml Q4H PRN PO GASTROINTESTINAL UPSET; Start 08/26/17 at 16:30 Ondansetron HCl (Zofran Inj) 4 mg Q4H PRN IV NAUSEA AND/OR VOMITING; Start at 16:30 Felodipine (Plendil) 2.5 mg BID PO ; Start 9/30/17 at 21:00 CONI HAYES MD Aug 27, 2017 13:44
[2017-08-27 14:10] LABS: ADD UMIC NO; UR ASCORBIC ACID NEGATIVE (NEGATIVE); UR BILIRUBIN (Dip) NEGATIVE (NEGATIVE); UR BLOOD (Dip) NEGATIVE (NEGATIVE); UR CLARITY CLEAR (CLEAR); UR COLOR YELLOW (YELLOW); UR GLUCOSE (Dip) NEGATIVE (NEGATIVE); UR KETONES (Dip) NEGATIVE (NEGATIVE); UR LEUKOCYTE ESTERASE (Dip) NEGATIVE Leu/ul (NEGATIVE); UR NITRITE (Dip) NEGATIVE (NEGATIVE); UR SPECIFIC GRAVITY (Dip) 1.008 (1.003-1.030); UR TOTAL PROTEIN (Dip) NEGATIVE (NEGATIVE); UR UROBILINOGEN (Dip) NEGATIVE (NEGATIVE)
[2017-08-27] MEDS: DOCUSATE SODIUM 100 MG CAP PO SCH (20:52)
[2017-08-27] MEDS: TAMSULOSIN (SR) 0.4 MG CAP PO SCH (20:52)
[2017-08-27] MEDS: POLYETHYLENE GLYCOL 17 GM PACKET PO SCH (20:53)
[2017-08-27] MEDS: LISINOPRIL 5 MG TAB PO SCH (20:53)
[2017-08-27] MEDS ORDERED: FELODIPINE (ER) 2.5 MG TAB PO SCH (21:00)
[2017-08-27] MEDS: SOD FERRIC GLUC COMPLX 125 MG in SOD CHLORIDE 0.9% 100 ML IVPB SCH (23:01)
[2017-08-27] MEDS: ZOLPIDEM 5 MG TAB PO PRN (23:09)
[2017-08-28] VITALS (12 sets, daily range): BP systolic 119–161; BP diastolic 58–71; PULSE 45–88; RESP 16–20
[2017-08-28 07:04] LABS: BASOPHILS % 0.7 % (0.0-2.0); EOSINOPHILS # 0.1 10^3/ul (0.0-0.5); EOSINOPHILS % 3.4 % (0.0-7.0); HEMATOCRIT 32.1 % (42.0-52.0); HEMOGLOBIN 9.9 g/dl (14.0-18.0); LYMPHOCYTES # 1.2 10^3/ul (0.8-2.9); LYMPHOCYTES % 30.3 % (15.0-51.0); MEAN CORPUSCULAR HEMOGLOBIN 27.9 pg (29.0-33.0); MEAN CORPUSCULAR HGB CONC 30.8 g/dl (32.0-37.0); MEAN CORPUSCULAR VOLUME 90.4 fl (82.0-101.0); MEAN PLATELET VOLUME 12.9 fl (7.4-10.4); MONOCYTE # 0.4 10^3/ul (0.3-0.9); MONOCYTES % 9.9 % (0.0-11.0); NEUTROPHIL # 2.2 10^3/ul (1.6-7.5); NEUTROPHILS % 55.2 % (39.0-77.0); PLATELET COUNT 136 10^3/UL (140-415); RED BLOOD COUNT 3.55 10^6/ul (4.70-6.10); RED CELL DISTRIBUTION WIDTH 15.9 % (11.5-14.5); WHITE BLOOD COUNT 4.1 10^3/ul (4.8-10.8)
[2017-08-28 07:11] LABS: INR 1.21; PROTIME 15.4 Sec (12.2-14.2); PT RATIO 1.2
[2017-08-28 07:12] LABS: PARTIAL THROMBOPLASTIN TIME 33.7 Sec (25.0-35.0)
[2017-08-28 07:38] LABS: TROPONIN-I < 0.012 ng/ml (0.00-0.12)
[2017-08-28 07:43] LABS: ALBUMIN 4.1 g/dl (3.3-4.9); ALBUMIN/GLOBULIN RATIO 1.17; BILIRUBIN,INDIRECT 0.3 mg/dl (0-1.1); BILIRUBIN,TOTAL 0.3 mg/dl (0.2-1.3); CALCIUM 9.8 mg/dl (8.4-10.2); CREATININE 0.97 mg/dl (0.61-1.24); POTASSIUM 4.5 mmol/L (3.5-5.1); TOTAL PROTEIN 7.6 g/dl (6.1-8.1)
[2017-08-28 07:49] LABS: ANION GAP 13 (8-16); BLOOD UREA NITROGEN 13 mg/dl (7-20); CARBON DIOXIDE 25 mmol/L (21-31); CHLORIDE 106 mmol/L (97-110); CREATININE 0.99 mg/dl (0.61-1.24); GLUCOSE 109 mg/dl (70-220); POTASSIUM 4.2 mmol/L (3.5-5.1); SODIUM 140 mmol/L (135-144)
[2017-08-28] MEDS: ESCITALOPRAM 10 MG TAB PO SCH (08:55)
[2017-08-28] MEDS: MULTIVITAMINS THERAPEUTIC TAB PO SCH (08:55)
[2017-08-28] MEDS: PANTOPRAZOLE (EC) 40 MG TAB PO SCH (08:56)
[2017-08-28] MEDS: CHOLECALCIFEROL 1,000 UNIT TAB PO SCH (08:56)
[2017-08-28] MEDS: ASPIRIN (EC) 81 MG TAB PO SCH (08:56)
[2017-08-28] MEDS: GABAPENTIN 300 MG CAP PO SCH (08:56)
[2017-08-28] MEDS ORDERED: MAGNESIUM CITRATE 300 ML BTL PO ONE (09:00)
[2017-08-28] MEDS ORDERED: BISACODYL (EC) 5 MG TAB PO ONE (09:00)
[2017-08-28] MEDS ORDERED: FELODIPINE (ER) 2.5 MG TAB PO SCH (09:00)
--- NOTE | 2017-08-28 09:46 | CONS ---
DATE OF ADMISSION: 08/25/2017 DATE OF CONSULTATION: 08/28/2017 HISTORY OF PRESENT ILLNESS: Thank you for having me see this patient. As you know, he is a 77-year-old gentleman who I am asked to see regarding gastrointestinal bleeding. The patient apparently is currently admitted because of chest pain. For the past month he has had intermittent chest pain and shortness of breath on exertion. Because of this, he saw his ecclesiastical worker who performed a stress echo, which was negative. Nonetheless, he was found to be anemic and because of this, was seen by Dr. Mason. He found him to be iron deficient and anemic. Apparently, the patient developed shortness of breath on walking and because of that, he was admitted to the hospital. Apparently he has been seen by Cardiology since admission and had a cardiac catheterization performed. Nonetheless, I was asked to see the patient because of his anemia and Hemoccult-positive stool. The patient does use Aleve two daily, aspirin and Celebrex every day. Because of heartburn, he was placed under Protonix two years ago. He has continued that to the current time. He is unaware of any knowledge of peptic ulcer disease. Nonetheless, one year ago, he had obtained radiation therapy for prostate cancer. For the past six months, he has had urgency and periodic fecal incontinence. He has noticed some constipation with his iron. Otherwise, he denies constipation or diarrhea. He denies any rectal bleeding, melena, heartburn, indigestion, dysphagia, odynophagia, nausea, or vomiting. There is no family history of gastrointestinal malignancy. PAST MEDICAL HISTORY: Hospitalization for hip replacement and and back surgery. Adult illness: Significant for heart disease as above, hypertension and hepatitis in the distant past while traveling in [place]. He denies any kidney problems, lung problems, tuberculosis, diabetes. Childhood: Denies scarlet fever. Injuries: None. ALLERGIES: NONE. MEDICATION: At home include: 1. Advil. 2. Aspirin. 3. Crestor. Lisinopril. 4. Atenolol. 5. Felodipine. 6. Zolpidem. 7. Flonase 8. Celebrex. 9. Protonix. SOCIAL HISTORY: The patient is semi-retired from the [employer]. He does not smoke. He drinks two alcohol beverages three times a week. FAMILY HISTORY: Noncontributory. REVIEW OF SYSTEMS: Negative except as noted above. PHYSICAL EXAMINATION: GENERAL: The patient is a well-developed, well-nourished male, in no acute distress. VITAL SIGNS: Temperature 97.7, pulse 42, respirations 18, blood pressure 119/61. SKIN: Clear. HEENT: Negative. CHEST: Clear to percussion and auscultation. CARDIAC: No murmurs or gallops. ABDOMEN: Soft, nontender, liver 8 cm, spleen not palpable, no masses, normal bowel sounds. RECTAL: Dark stool. LABORATORY: Remarkable for white count 4.1, hemoglobin 9.9, hematocrit 32, platelets 136, ProTime/INR 1.2, PTT 33. Chemistries: AST 90, ALT 71, alk phos 123. IMPRESSION: Clearly, the patient has lost blood through the GI tract and this is responsible for his anemia. I note the patient's substantial intake of aspirin, Celebrex, and Advil. Therefore, this could very well be that the patient has peptic disease responsible for GI blood loss. Alternatively, I note the concern regarding the patient's urgency and lower abdominal symptoms. The patient relates having a colonoscopy approximately six years ago, which was negative. It is certainly possible the patient could have developed radiation proctitis from his prostate radiation. However, if he was losing blood from this, I would suspect he would notice blood in his stool. Nonetheless, given the above upper and lower possibilities, endoscopy and colonoscopy are warranted. PLAN: 1. Discussed above including risks and benefits, and alternatives in depth with the patient. 2. Preparation for colonoscopy and endoscopy written. 3. Procedure scheduled for tomorrow. 4. Further recommendations following above and clinical course. 5. Thank you for having me see the patient. Dictated By: Niles Mcwilliams MD /anastasiia/paco /Document#: [id number]
--- NOTE | 2017-08-28 09:49 | PN ---
Date/Time of Note Date/Time of Note DATE: 08/28/17 TIME: 09:46 Assessment/Plan VTE Prophylaxis VTE Prophylaxis Intervention: ambulation Lines/Catheters [facility] Saline Lock Assessment/Plan Chief Complaint/Hosp Course 1. Coronary artery disease 2 vessel significant stenosis mid LAD and mid to distal PDA with several coronary aneurysms noted.s/p angio tuesday and currently asymptomatic. will need angioplasty and cards to coordinate with gi 2. Xkncsb-Ztpcegqyx-soaltiaa unclear etiology, consider radiation proctitis. hb better with iv iron. appreciate gi eval. for egd and c scope in am 3. 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 4. Mildly elevated liver tests due to fatty liver. 5. Moderate aortic stenosis. clincaly compensated 6. Hyperlipidemia.on statin 7. Obstructive sleep apnea on CPAP. 8 History of prostate cancer with radiation therapy and currently on Lupron. 9-pancytopenia: ? chronicity/ will review old labs for comparison. anemia may be marrow issue rather than gi issue although he is ob positive 10 htn: on meds : bp stable/ better Problems: Subjective 24 Hr Interval Summary Free Text/Dictation feels well. no issues. no cp or sob. scheduled for egd and c scope in am Exam/Review of Systems Vital Signs Vitals Vital Signs Date Time Temp Pulse Resp B/P Pulse Ox O2 Delivery O2 Flow Rate FiO2 08/28/17 08:00 88 08/28/17 07:26 97.7 16 119/61 99 08/26/17 18:41 Nasal Cannula 08/26/17 18:26 2.0 Intake and Output 08/27/17 08/27/17 08/28/17 15:00 23:00 07:00 Intake Total 2000 ml 1200 ml Balance 2000 ml 1200 ml Exam Constitutional: alert, oriented, well developed Head: normocephalic Eyes: nl conjunctiva Neck: non-tender, supple Respiratory: clear to auscultation Cardiovascular: edema, regular rate and rhythm Gastrointestinal: non-tender, soft Results Result Diagram: 08/28/17 0602 08/28/17 06 Results 24 hrs Laboratory Tests Test 08/27/17 13:35 08/28/17 06:02 Urine Color YELLOW Urine Clarity CLEAR Urine pH 6.0 Urine Specific [place] 1.008 Urine Ketones NEGATIVE Urine Nitrite NEGATIVE Urine Bilirubin NEGATIVE Urine Urobilinogen NEGATIVE Urine Leukocyte Esterase NEGATIVE Urine Hemoglobin NEGATIVE Urine Glucose NEGATIVE Urine Total Protein NEGATIVE White Blood Count 4.1 L Red Blood Count 3.55 L Hemoglobin 9.9 L Hematocrit 32.1 L Mean Corpuscular Volume 90.4 Mean Corpuscular Hemoglobin 27.9 L Mean Corpuscular Hemoglobin Concent 30.8 L Red Cell Distribution Width 15.9 H Platelet Count 136 L Mean Platelet Volume 12.9 H Neutrophils % 55.2 Lymphocytes % 30.3 Monocytes % 9.9 Eosinophils % 3.4 Basophils % 0.7 Nucleated Red Blood Cells % 0.0 Neutrophils # 2.2 Lymphocytes # 1.2 Monocytes # 0.4 Eosinophils # 0.1 Basophils # 0.0 Nucleated Red Blood Cells # 0.0 Prothrombin Time 15.4 H Prothrombin Time Ratio 1.2 INR International Normalized Ratio 1.21 Activated Partial Thromboplast Time 33.7 Sodium Level 142 Potassium Level 4.5 Chloride Level 105 Carbon Dioxide Level 25 Anion Gap 17 H Blood Urea Nitrogen 13 Creatinine 0.97 Glucose Level 109 Calcium Level 9.8 Total Bilirubin 0.3 Direct Bilirubin 0.00 Indirect Bilirubin 0.3 Aspartate Amino Transf (AST/SGOT) 90 H Alanine Aminotransferase (ALT/SGPT) 71 H Alkaline Phosphatase 123 H Troponin I < 0.012 Total Protein 7.6 Albumin 4.1 Globulin 3.50 H Albumin/Globulin Ratio 1.17 Medications Medications Current Medications Acetaminophen (Tylenol Tab) 650 mg Q6H PRN PO FEVER; Start 08/25/17 at 22:00 Zolpidem Tartrate (Ambien) 5 mg QHS PRN PO INSOMNIA; Start 08/25/17 at 22:00 Aspirin (Halfprin) 81 mg DAILY PO Last administered on 08/28/17 08:56; Admin Dose 81 MG; Start 08/26/17 at 09:00 Cholecalciferol (Vitamin D) 1,000 unit DAILY PO Last administered on 08/28/17 08:56; Admin Dose 1,000 UNIT; Start 08/26/17 at 09:00 Docusate Sodium (Colace) 100 mg QHS PO Last administered on 08/27/17 20:52; Admin Dose 100 MG; Start 08/26/17 at 21:00 Escitalopram Oxalate (Lexapro) 10 mg DAILY PO Last administered on 08/28/17 08 :55; Admin Dose 10 MG; Start 08/26/17 at 09:00 Gabapentin (Neurontin) 300 mg QAM PO Last administered on 08/28/17 08:56; Admin Dose 300 MG; Start 08/26/17 at 09:00 Lisinopril (Zestril) 5 mg QHS PO Last administered on 08/27/17 20:53; Admin Dose 5 MG; Start 08/26/17 at 21:00 Multivitamins Therapeutic (Theragran) 1 tab DAILY PO Last administered on 08:55; Admin Dose 1 TAB; Start 08/26/17 at 09:00 Polyethylene Glycol (Miralax) 8.5 gm QHS PO Last administered on 08/27/17 20: 53; Admin Dose 8.5 GM; Start 08/26/17 at 21:00 Tamsulosin HCl (Flomax) 0.4 mg QHS PO Last administered on 08/27/17 20:52; Admin Dose 0.4 MG; Start 08/26/17 at 21:00 Zolpidem Tartrate (Ambien) 10 mg QHS PRN PO INSOMNIA Last administered on 23:09; Admin Dose 10 MG; Start 08/25/17 at 22:00 Miscellaneous Information (* Miscellaneous Pharmacy Order) HOLD all METFORMIN ... ONCE XX ; Start 08/26/17 at 16:30; Stop 08/28/17 at 16:29 Acetaminophen (Tylenol Tab) 650 mg Q4H PRN PO NON-CARDIAC PAIN LEVEL 1-3; Start 08/26/17 at 16:30 Oxycodone/ Acetaminophen (Percocet (5/ 325)) 1 tab Q4H PRN PO REPORTED NON- CARDIAC PAIN 4-7; Start 08/26/17 at 16:30 Al Hydrox/Mg Hydrox/Simethicone (Mag-Al Plus) 30 ml Q4H PRN PO GASTROINTESTINAL UPSET; Start 08/26/17 at 16:30 Ondansetron HCl (Zofran Inj) 4 mg Q4H PRN IV NAUSEA AND/OR VOMITING; Start at 16:30 Felodipine (Plendil) 2.5 mg DAILY PO Last administered on 08/28/17 09:01; Admin Dose 2.5 MG; Start 08/28/17 at 09:00 Polyethylene Glycol (Miralax) 119 gm ONCE ONCE PO ; Start 08/28/17 at 18:00; Stop 08/28/17 at 18:01 CONI HAYES MD Aug 28, 2017 09:49
--- NOTE | 2017-08-28 11:57 | PN ---
Date/Time of Note Date/Time of Note DATE: 08/28/17 TIME: 11:53 SUBJECTIVE: Patient denies any chest pains dyspnea palpitations has no significant pain in right radial area from angiogram. Denies seeing any bloody stools in the past or dark stools. Patient seen by gastroenterology scheduled for endoscopy and colonoscopy tomorrow. Patient ambulating in the hallways without any complaints. Chart, medications and laboratory studies reviewed. ROS: Patient denied any fevers, chills, weight loss, nausea, vomiting, diarrhea, constipation, cough, hemoptysis, dysuria, hematuria, nocturia, any neurologic symptoms, headache, any chest pains, dyspnea, PND, orthopnea, leg edema, or palpitations. All other review of systems were normal. OBJECTIVE: Vital signs please see chart. HEENT; no JVD, no HJR, carotids 2 over 4+ without bruits. Chest: Clear to auscultation and percussion, no rales, wheezes or rhonchi. Cardiac: S4, S1, S2 with normal physiologic splitting, 2/6 early to mid systolic ejection murmur, no rub click or diastolic murmur noted. Abdominal: Bowel sounds positive, soft nontender, no abdominal bruit noted, no hepatosplenomegaly. Extremities: No cyanosis, clubbing, or edema. Negative Homans sign or palpable cords. Right wrist without ecchymosis or hematoma normal Silvio's test. Pulses: 2/4 pulses diffusely no bruits noted. LABORATORY STUDIES; Hemoglobin 9.9 hematocrit 32.1 normal white count and platelet count, normal electrolytes BUN/creatinine, liver tests elevated AST 90 ALT 71 alkaline phosphatase 123. EKG this morning revealed sinus bradycardia at 45 beats a minute first-degree AV block no acute changes. Telemetry heart rate now up into the 80s. There is no ectopy. ASSESSMENT: 1. Coronary artery disease 2 vessel significant stenosis mid LAD and mid to distal PDA with several coronary aneurysms noted. 2. Bglgmc-Pgqlgaugr-oldifnlc unclear etiology, consider radiation proctitis. 3. 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 4. Mildly elevated liver tests due to fatty liver, increasing. 5. Moderate aortic stenosis. 6. Hyperlipidemia. 7. Obstructive sleep apnea on CPAP. 8 History of prostate cancer with radiation therapy and currently on Lupron. Patient stable from a cardiac standpoint will need to postpone angioplasty and stenting scheduled for tomorrow with patient having upper endoscopy and colonoscopy tomorrow. Will increase Plendil once again to 2.5 twice a day continue aspirin. PLAN: 1. Increase Plendil to 2.5 mg twice a day once again order written, continue aspirin and low-dose lisinopril. 2. Upper and lower endoscopy and colonoscopy tomorrow will postpone angioplasty and stenting. 3. Continue to monitor. FAY CARDENAS MD Aug 28, 2017 11:57
[2017-08-28] MEDS ORDERED: POLYETHYLENE GLYCOL 3350 119 GM POWDER PO ONE (18:00)
[2017-08-28] MEDS: DOCUSATE SODIUM 100 MG CAP PO SCH (21:18)
[2017-08-28] MEDS: TAMSULOSIN (SR) 0.4 MG CAP PO SCH (21:18)
[2017-08-28] MEDS: POLYETHYLENE GLYCOL 17 GM PACKET PO SCH (21:19)
[2017-08-28] MEDS: LISINOPRIL 5 MG TAB PO SCH (21:19)
[2017-08-28] MEDS: FELODIPINE (ER) 2.5 MG TAB PO SCH (21:19)
[2017-08-28] MEDS: ZOLPIDEM 5 MG TAB PO PRN (23:03)
[2017-08-29] VITALS (19 sets, daily range): BP systolic 100–138; BP diastolic 54–86; PULSE 46–65; RESP 12–29
[2017-08-29] MEDS ORDERED: BISACODYL (EC) 5 MG TAB PO ONE (06:00)
[2017-08-29] MEDS ORDERED: POLYETHYLENE GLYCOL 3350 119 GM POWDER PO ONE (06:00)
[2017-08-29 07:22] LABS: BASOPHILS % 0.8 % (0.0-2.0); EOSINOPHILS # 0.2 10^3/ul (0.0-0.5); EOSINOPHILS % 3.6 % (0.0-7.0); HEMOGLOBIN 10.8 g/dl (14.0-18.0); LYMPHOCYTES # 1.6 10^3/ul (0.8-2.9); LYMPHOCYTES % 31.5 % (15.0-51.0); MEAN CORPUSCULAR HEMOGLOBIN 28.1 pg (29.0-33.0); MEAN CORPUSCULAR HGB CONC 30.9 g/dl (32.0-37.0); MEAN CORPUSCULAR VOLUME 90.9 fl (82.0-101.0); MONOCYTE # 0.4 10^3/ul (0.3-0.9); MONOCYTES % 8.2 % (0.0-11.0); NEUTROPHIL # 2.8 10^3/ul (1.6-7.5); NEUTROPHILS % 55.7 % (39.0-77.0); PLATELET COUNT 160 10^3/UL (140-415); RED BLOOD COUNT 3.85 10^6/ul (4.70-6.10); RED CELL DISTRIBUTION WIDTH 16.5 % (11.5-14.5)
[2017-08-29] MEDS: PANTOPRAZOLE (EC) 40 MG TAB PO SCH (07:25)
[2017-08-29 07:45] LABS: ALBUMIN 4.3 g/dl (3.3-4.9); BILIRUBIN,INDIRECT 0.5 mg/dl (0-1.1); BILIRUBIN,TOTAL 0.5 mg/dl (0.2-1.3); TOTAL PROTEIN 8.8 g/dl (6.1-8.1)
[2017-08-29] MEDS: ESCITALOPRAM 10 MG TAB PO SCH (08:06)
[2017-08-29] MEDS: GABAPENTIN 300 MG CAP PO SCH (08:07)
[2017-08-29] MEDS: MULTIVITAMINS THERAPEUTIC TAB PO SCH (08:08)
[2017-08-29] MEDS: CHOLECALCIFEROL 1,000 UNIT TAB PO SCH (08:08)
[2017-08-29 08:11] LABS: ALBUMIN 4.4 g/dl (3.3-4.9); ALBUMIN/GLOBULIN RATIO 1.02; BILIRUBIN,INDIRECT 0.5 mg/dl (0-1.1); BILIRUBIN,TOTAL 0.5 mg/dl (0.2-1.3); CALCIUM 10.4 mg/dl (8.4-10.2); CREATININE 0.89 mg/dl (0.61-1.24); POTASSIUM 4.6 mmol/L (3.5-5.1); TOTAL PROTEIN 8.7 g/dl (6.1-8.1)
[2017-08-29] MEDS: ASPIRIN (EC) 81 MG TAB PO SCH (08:12)
[2017-08-29] MEDS: FELODIPINE (ER) 2.5 MG TAB PO SCH ×2 (08:12→21:57)
--- NOTE | 2017-08-29 11:23 | PN ---
Date/Time of Note Date/Time of Note DATE: 08/29/17 TIME: 10:24 Assessment/Plan VTE Prophylaxis VTE Prophylaxis Intervention: contraindicated VTE Contraindication Reason: bleeding Lines/Catheters IV C[facility]ter Type (from [facility]): Saline Lock Assessment/Plan Chief Complaint/Hosp Course 1. Coronary artery disease with exertional chest pain and chest pressure. Troponins are negative for acute [place]. He has no chest pain or shortness of breath this morning but he is in bed at rest. He has been seen by cardiology and they recommended a coronary angiogram . He will have an angiogram after GI w /u is complete . 2. Anemia, due to iron deficiency, rule out GI bleeding . He is getting IV Ferrelicit and his H/H is higher . He will have UGD and colonoscopy today . 3. Hyperlipidemia, Will restart lipitor . 4. Prostate cancer status post radiation therapy 5. Right total hip replacement in April of this year Problems: Subjective 24 Hr Interval Summary Free Text/Dictation He is overall feeling better . He did have some mild chest pressure last night , none today . Constitutional: improved, no complaints Respiratory: no complaints Cardiovascular: no complaints Gastrointestinal: no complaints Genitourinary: no complaints Exam/Review of Systems Vital Signs Vitals Vital Signs Date Time Temp Pulse Resp B/P Pulse Ox O2 Delivery O2 Flow Rate FiO2 08/29/17 08:10 56 08/29/17 07:51 97.4 19 133/61 97 08/26/17 18:41 Nasal Cannula 08/26/17 18:26 2.0 Intake and Output 08/28/17 08/28/17 08/29/17 15:00 23:00 07:00 Intake Total 1200 ml 1500 ml Output Total 3 ml 3 ml Balance 1197 ml 1497 ml Exam Constitutional: alert, oriented, well developed Head: atraumatic, normocephalic Respiratory: clear to auscultation, normal air movement Cardiovascular: nl pulses, regular rate and rhythm Gastrointestinal: non-tender, soft Musculoskeletal: nl extremities to inspection Results Result Diagram: 08/29/17 0649 08/29/17 0649 Results 24 hrs Laboratory Tests Test 08/29/17 06:49 White Blood Count 5.0 # Red Blood Count 3.85 L Hemoglobin 10.8 L Hematocrit 35.0 L Mean Corpuscular Volume 90.9 Mean Corpuscular Hemoglobin 28.1 L Mean Corpuscular Hemoglobin Concent 30.9 L Red Cell Distribution Width 16.5 H Platelet Count 160 Mean Platelet Volume 12.0 H Neutrophils % 55.7 Lymphocytes % 31.5 Monocytes % 8.2 Eosinophils % 3.6 Basophils % 0.8 Nucleated Red Blood Cells % 0.0 Neutrophils # 2.8 Lymphocytes # 1.6 Monocytes # 0.4 Eosinophils # 0.2 Basophils # 0.0 Nucleated Red Blood Cells # 0.0 Sodium Level 141 Potassium Level 4.6 Chloride Level 104 Carbon Dioxide Level 21 Anion Gap 21 H Blood Urea Nitrogen 10 Creatinine 0.89 Glucose Level 109 Calcium Level 10.4 H Total Bilirubin 0.5 Direct Bilirubin 0.00 Indirect Bilirubin 0.5 Aspartate Amino Transf (AST/SGOT) 107 H Alanine Aminotransferase (ALT/SGPT) 80 H Alkaline Phosphatase 133 H Total Protein 8.7 H Albumin 4.4 Globulin 4.30 H Albumin/Globulin Ratio 1.02 Medications Medications Current Medications Acetaminophen (Tylenol Tab) 650 mg Q6H PRN PO FEVER; Start 08/25/17 at 22:00 Zolpidem Tartrate (Ambien) 5 mg QHS PRN PO INSOMNIA; Start 08/25/17 at 22:00 Aspirin (Halfprin) 81 mg DAILY PO Last administered on 08/29/17 08:12; Admin Dose 81 MG; Start 08/26/17 at 09:00 Cholecalciferol (Vitamin D) 1,000 unit DAILY PO Last administered on 08/28/17 08:56; Admin Dose 1,000 UNIT; Start 08/26/17 at 09:00 Docusate Sodium (Colace) 100 mg QHS PO Last administered on 08/28/17 21:18; Admin Dose 100 MG; Start 08/26/17 at 21:00 Escitalopram Oxalate (Lexapro) 10 mg DAILY PO Last administered on 08/28/17 08 :55; Admin Dose 10 MG; Start 08/26/17 at 09:00 Gabapentin (Neurontin) 300 mg QAM PO Last administered on 08/28/17 08:56; Admin Dose 300 MG; Start 08/26/17 at 09:00 Lisinopril (Zestril) 5 mg QHS PO Last administered on 08/28/17 21:19; Admin Dose 5 MG; Start 08/26/17 at 21:00 Multivitamins Therapeutic (Theragran) 1 tab DAILY PO Last administered on 08:55; Admin Dose 1 TAB; Start 08/26/17 at 09:00 Polyethylene Glycol (Miralax) 8.5 gm QHS PO Last administered on 08/28/17 21: 19; Admin Dose 8.5 GM; Start 08/26/17 at 21:00 Tamsulosin HCl (Flomax) 0.4 mg QHS PO Last administered on 08/28/17 21:18; Admin Dose 0.4 MG; Start 08/26/17 at 21:00 Zolpidem Tartrate (Ambien) 10 mg QHS PRN PO INSOMNIA Last administered on 23:03; Admin Dose 10 MG; Start 08/25/17 at 22:00 Acetaminophen (Tylenol Tab) 650 mg Q4H PRN PO NON-CARDIAC PAIN LEVEL 1-3; Start 08/26/17 at 16:30 Oxycodone/ Acetaminophen (Percocet (5/ 325)) 1 tab Q4H PRN PO REPORTED NON- CARDIAC PAIN 4-7; Start 08/26/17 at 16:30 Al Hydrox/Mg Hydrox/Simethicone (Mag-Al Plus) 30 ml Q4H PRN PO GASTROINTESTINAL UPSET; Start 08/26/17 at 16:30 Ondansetron HCl (Zofran Inj) 4 mg Q4H PRN IV NAUSEA AND/OR VOMITING; Start at 16:30 Felodipine (Plendil) 2.5 mg BID PO Last administered on 08/29/17 08:12; Admin Dose 2.5 MG; Start 08/28/17 at 21:00 FEI MENENDEZ MD Aug 29, 2017 10:33
[2017-08-29] MEDS ORDERED: PROPOFOL 40 ML ONE (12:41)
[2017-08-29] MEDS ORDERED: MIDAZOLAM 1 MG/ML 2 ML INJ ONE (12:41)
--- NOTE | 2017-08-29 13:26 | OPPN ---
Date/Time of Note Date/Time of Note DATE: 08/29/17 TIME: 13:20 Proc Note GI Procedure Date 08/29/17 Pre-procedure Diagnosis GI Bleed Post-procedure Diagnosis Gastric Erosions Duodenal Telangiectasia - Gold Probe Cautery Normal Colonoscopy Anal Tag-Ulcerated Procedure Performed: Endoscopy, Colonoscopy Surgeon see signature line Nurse Specialist none Anesthesia Type: MAC, moderate sedation Anesthesiologist: MARIA ISABEL FOLEY Tourniquet Time none EBL none Transfusion required none Biopsy 1: gastric Grafts/Implants none Tubes/Drains none Complication(s) none Pt Condition post procedure: stable Disposition: PACU Operative\Procedure Findings (Error Message Did Not Allow Dictation- Procedures Dictated) MARINA AWAN MD Aug 29, 2017 13:26
[2017-08-29] MEDS ORDERED: CLOPIDOGREL 75 MG TAB PO ONE (15:00)
--- NOTE | 2017-08-29 15:00 | CONS ---
Date/Time of Note Date/Time of Note DATE: 08/29/17 TIME: 14:54 Assessment/Plan Assessment/Plan Chief Complaint/Hosp Course ASSESSMENT: 1. Coronary artery disease 2 vessel significant stenosis mid LAD and mid to distal PDA with several coronary aneurysms noted. 2. Anemia- iron def, has gastric ulcer, duodenal telangiectasia s/p cautery. hgb stable 3. 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 4. Mildly elevated liver tests due to fatty liver, increasing. 5. Moderate aortic stenosis. 6. Hyperlipidemia. 7. Obstructive sleep apnea on CPAP. 8 History of prostate cancer with radiation therapy and currently on Lupron. PLAN: 1. cont asa 81 mg daily 2. add plavix 300mg po x tonight 3. cont statin 4. unable to tolerate bb as hrs 40s-50s at rest 5. cont felodipine 6. cont ppi per GI Pt with gastric erosion and duodenal telangectasia s/p cautery, hgb stable given cont symptoms will proceed with PCI. Plan for PCI tomorrow afternoon (NPO after lunch) given cont angina inpt. Load with clopidogrel 300mg x 1 Pt/family aware of all risks/benefits to procedure, all questions answered. Problems: Consultation Date/Type/Reason Admit Date/Time Aug 25, 2017 at 18:10 Initial Consult Date 08/26/17 Type of Consultation: cardiology Referring Provider: FEI MENENDEZ MD 24 HR Interval Summary Free Text/Dictation s/p egd/colon which per report showed gastric erosin, duodenal telangiectasia s/ p cautery normal colonscopy. pt states no bleeding. did have episode of cp last night lasting x 3 mins, no n/v, diaphoresis. pt otherwise ambulating without cp/sob. tele reviewed: nsr, with sinus braeden 40-60s. Detailed Summary ENT: no complaints Respiratory: no complaints Cardiovascular: chest pain Gastrointestinal: no complaints Exam/Review of Systems Vital Signs Vitals Vital Signs Date Time Temp Pulse Resp B/P Pulse Ox O2 Delivery O2 Flow Rate FiO2 08/29/17 13:54 59 29 116/56 100 Room Air 08/29/17 13:34 98.0 08/29/17 13:14 5 Intake and Output 08/28/17 08/28/17 08/29/17 15:00 23:00 07:00 Intake Total 1200 ml 1500 ml Output Total 3 ml 3 ml Balance 1197 ml 1497 ml Exam HEENT; no JVD, no HJR, carotids 2 over 4+ without bruits. Chest: Clear to auscultation and percussion, no rales, wheezes or rhonchi. Cardiac: S4, S1, S2 with normal physiologic splitting, 2/6 early to mid systolic ejection murmur, no rub click or diastolic murmur noted. Abdominal: Bowel sounds positive, soft nontender, no abdominal bruit noted, no hepatosplenomegaly. Extremities: No cyanosis, clubbing, or edema. Negative Homans sign or palpable cords. Right wrist without ecchymosis or hematoma normal Silvio's test. Pulses: 2/4 pulses diffusely no bruits noted. Results Result Diagram: 08/29/17 0649 08/29/17 0649 Results 24 hrs Laboratory Tests Test 08/29/17 06:49 White Blood Count 5.0 # Red Blood Count 3.85 L Hemoglobin 10.8 L Hematocrit 35.0 L Mean Corpuscular Volume 90.9 Mean Corpuscular Hemoglobin 28.1 L Mean Corpuscular Hemoglobin Concent 30.9 L Red Cell Distribution Width 16.5 H Platelet Count 160 Mean Platelet Volume 12.0 H Neutrophils % 55.7 Lymphocytes % 31.5 Monocytes % 8.2 Eosinophils % 3.6 Basophils % 0.8 Nucleated Red Blood Cells % 0.0 Neutrophils # 2.8 Lymphocytes # 1.6 Monocytes # 0.4 Eosinophils # 0.2 Basophils # 0.0 Nucleated Red Blood Cells # 0.0 Sodium Level 141 Potassium Level 4.6 Chloride Level 104 Carbon Dioxide Level 21 Anion Gap 21 H Blood Urea Nitrogen 10 Creatinine 0.89 Glucose Level 109 Calcium Level 10.4 H Total Bilirubin 0.5 Direct Bilirubin 0.00 Indirect Bilirubin 0.5 Aspartate Amino Transf (AST/SGOT) 107 H Alanine Aminotransferase (ALT/SGPT) 80 H Alkaline Phosphatase 133 H Total Protein 8.7 H Albumin 4.4 Globulin 4.30 H Albumin/Globulin Ratio 1.02 Medications Medications Current Medications Acetaminophen (Tylenol Tab) 650 mg Q6H PRN PO FEVER; Start 08/25/17 at 22:00 Zolpidem Tartrate (Ambien) 5 mg QHS PRN PO INSOMNIA; Start 08/25/17 at 22:00 Aspirin (Halfprin) 81 mg DAILY PO Last administered on 08/29/17 08:12; Admin Dose 81 MG; Start 08/26/17 at 09:00 Cholecalciferol (Vitamin D) 1,000 unit DAILY PO Last administered on 08/28/17 08:56; Admin Dose 1,000 UNIT; Start 08/26/17 at 09:00 Docusate Sodium (Colace) 100 mg QHS PO Last administered on 08/28/17 21:18; Admin Dose 100 MG; Start 08/26/17 at 21:00 Escitalopram Oxalate (Lexapro) 10 mg DAILY PO Last administered on 08/28/17 08 :55; Admin Dose 10 MG; Start 08/26/17 at 09:00 Gabapentin (Neurontin) 300 mg QAM PO Last administered on 08/28/17 08:56; Admin Dose 300 MG; Start 08/26/17 at 09:00 Lisinopril (Zestril) 5 mg QHS PO Last administered on 08/28/17 21:19; Admin Dose 5 MG; Start 08/26/17 at 21:00 Multivitamins Therapeutic (Theragran) 1 tab DAILY PO Last administered on 08:55; Admin Dose 1 TAB; Start 08/26/17 at 09:00 Polyethylene Glycol (Miralax) 8.5 gm QHS PO Last administered on 08/28/17 21: 19; Admin Dose 8.5 GM; Start 08/26/17 at 21:00 Tamsulosin HCl (Flomax) 0.4 mg QHS PO Last administered on 08/28/17 21:18; Admin Dose 0.4 MG; Start 08/26/17 at 21:00 Zolpidem Tartrate (Ambien) 10 mg QHS PRN PO INSOMNIA Last administered on 23:03; Admin Dose 10 MG; Start 08/25/17 at 22:00 Acetaminophen (Tylenol Tab) 650 mg Q4H PRN PO NON-CARDIAC PAIN LEVEL 1-3; Start 08/26/17 at 16:30 Oxycodone/ Acetaminophen (Percocet (5/ 325)) 1 tab Q4H PRN PO REPORTED NON- CARDIAC PAIN 4-7; Start 08/26/17 at 16:30 Al Hydrox/Mg Hydrox/Simethicone (Mag-Al Plus) 30 ml Q4H PRN PO GASTROINTESTINAL UPSET; Start 08/26/17 at 16:30 Ondansetron HCl (Zofran Inj) 4 mg Q4H PRN IV NAUSEA AND/OR VOMITING; Start at 16:30 Felodipine (Plendil) 2.5 mg BID PO Last administered on 08/29/17t 08:12; Admin Dose 2.5 MG; Start 08/28/17 at 21:00 Atorvastatin Calcium 40 mg 40 mg HS PO ; Start 08/29/17 at 21:00 Ferric Sodium Gluconate Complex/ Sodium Chloride (Ferrlecit/NS) 110 ml @ 100 mls/hr Q24H IVPB ; Start 08/29/17 at 13:00; Stop 08/30/17 at 14:05 Procedures Procedures gi notes, colonscopy images reviewed MARIA ISABEL FOLEY Aug 29, 2017 15:00
--- NOTE | 2017-08-29 15:02 | GILP ---
DATE OF PROCEDURE: 08/29/2017 ENDOSCOPIST: Niles Mcwilliams MD. PROCEDURE PERFORMED: Colonoscopy. INDICATION: Gastrointestinal bleeding. DESCRIPTION OF PROCEDURE: After informed consent, the patient was placed in the left lateral position, and sedated per Anesthesia. The Olympus video colonoscope was easily passed into the patient's rectum. The instrument was passed through sigmoid, descending, transverse, ascending, colon, to the cecum. The appendiceal orifice and cecal valve were identified. These appeared normal. The ileocecal valve was traversed. No lesions were encountered. The instrument was then slowly removed through the cecum, ascending, transverse, descending and sigmoid colons. The mucosa throughout appeared normal. In the rectum turn around feature was performed. No additional lesions were noted. Externally in the anal area there was an ulcerated nodule noted. This was left intact. The instrument was removed from the patient's rectum. The patient tolerated the procedure well. COMPLICATIONS: None. IMPRESSION: 1. Normal colonoscopic examination. 2. Anal nodule-ulcerated. PLAN: Postoperatively, will follow up patient pending clinical course. Dictated By: Niles Mcwilliams MD /anastasiia/emilie /Document#: [id number] CC: Murtaza Mason MD;*End*
[2017-08-29] MEDS: SOD FERRIC GLUC COMPLX 125 MG in SOD CHLORIDE 0.9% 100 ML IVPB SCH (15:17)
--- NOTE | 2017-08-29 16:44 | GILP ---
DATE OF PROCEDURE: 08/29/2017 NAME OF PROCEDURES: Upper gastrointestinal endoscopy. SURGEON: Niles Mcwilliams MD INDICATION FOR THE PROCEDURE: Gastrointestinal bleeding. DESCRIPTION OF PROCEDURE: After informed consent, the patient was placed in the left lateral position, and stated for anesthesia. ESOPHAGUS: The Olympus video endoscope was easily passed into the patient's esophagus. STOMACH: The instrument was advanced to the stomach. The antrum was seen. The pylorus was seen. DUODENUM: The duodenal bulb and second portion of the duodenum were examined. Within the second portion of the duodenum, an isolated telangiectasia was seen. This was cauterized with gold probe, and adequate hemostasis was obtained. The instrument was removed from the patient's stomach. This was carefully examined, including turn around procedure. Within the antrum scattered trivial erosive changes were noted. It Security Engineer biopsies were performed. There was no antral bleeding sites. The instrument was removed from the patient's esophagus. This appeared normal throughout. The instrument was removed from the patient's mouth. The patient tolerated the procedure well. IMPRESSION: 1. Duodenal telangiectasia-cauterized. 2. Gastric erosions-biopsied. PLAN: Postoperatively will follow the patient, and follow up pending pathology. Dictated By: MD MILLIE Evans/anastasiia/emilie /Document#: [id number]
--- NOTE | 2017-08-29 17:03 | RADRPT ---
Vent Rate: 44 bpm RR Interval: 0 msec [place] Interval: 218 msec QRS Duration: 98 msec QT Interval: 480 msec QTC Interval: 410 msec P-R-T [place]: 52 - 31 - 57 degrees Marked sinus bradycardia with 1st degree AV block Abnormal ECG Electronically Signed By: Jeremy Beckett [id number]
--- NOTE | 2017-08-29 17:06 | RADRPT ---
Vent Rate: 41 bpm RR Interval: 0 msec [place] Interval: 216 msec QRS Duration: 104 msec QT Interval: 500 msec QTC Interval: 412 msec P-R-T [place]: 61 - 60 - 52 degrees Marked sinus bradycardia with 1st degree AV block Septal infarct , age undetermined Abnormal ECG Electronically Signed By: Kam Heller [id number]
--- NOTE | 2017-08-29 17:09 | RADRPT ---
Vent Rate: 44 bpm RR Interval: 0 msec [place] Interval: 218 msec QRS Duration: 98 msec QT Interval: 508 msec QTC Interval: 434 msec P-R-T [place]: 60 - 36 - 52 degrees Marked sinus bradycardia with 1st degree AV block Abnormal ECG Electronically Signed By: Jeremy Beckett [id number]
[2017-08-29] MEDS: ATORVASTATIN 40 MG TAB PO SCH (21:54)
[2017-08-29] MEDS: TAMSULOSIN (SR) 0.4 MG CAP PO SCH (21:54)
[2017-08-29] MEDS: DOCUSATE SODIUM 100 MG CAP PO SCH (21:54)
[2017-08-29] MEDS: LISINOPRIL 5 MG TAB PO SCH (21:57)
[2017-08-29] MEDS ORDERED: DIAZEPAM 5 MG TAB PO ONE (22:00)
[2017-08-29] MEDS: POLYETHYLENE GLYCOL 17 GM PACKET PO SCH (22:00)
[2017-08-30] VITALS (29 sets, daily range): BP systolic 104–161; BP diastolic 57–70; PULSE 40–69; RESP 13–20
[2017-08-30] MEDS: PANTOPRAZOLE (EC) 40 MG TAB PO SCH ×2 (06:44→23:44)
[2017-08-30 07:28] LABS: BASOPHILS % 0.5 % (0.0-2.0); EOSINOPHILS # 0.2 10^3/ul (0.0-0.5); EOSINOPHILS % 3.6 % (0.0-7.0); HEMATOCRIT 30.8 % (42.0-52.0); HEMOGLOBIN 9.3 g/dl (14.0-18.0); LYMPHOCYTES # 1.1 10^3/ul (0.8-2.9); LYMPHOCYTES % 27.4 % (15.0-51.0); MEAN CORPUSCULAR HEMOGLOBIN 27.3 pg (29.0-33.0); MEAN CORPUSCULAR HGB CONC 30.2 g/dl (32.0-37.0); MEAN CORPUSCULAR VOLUME 90.3 fl (82.0-101.0); MEAN PLATELET VOLUME 12.9 fl (7.4-10.4); MONOCYTE # 0.4 10^3/ul (0.3-0.9); MONOCYTES % 10.2 % (0.0-11.0); NEUTROPHIL # 2.4 10^3/ul (1.6-7.5); NEUTROPHILS % 58.1 % (39.0-77.0); PLATELET COUNT 133 10^3/UL (140-415); RED BLOOD COUNT 3.41 10^6/ul (4.70-6.10); RED CELL DISTRIBUTION WIDTH 17.1 % (11.5-14.5); WHITE BLOOD COUNT 4.1 10^3/ul (4.8-10.8)
[2017-08-30 08:05] LABS: ALBUMIN/GLOBULIN RATIO 1.05; BILIRUBIN,INDIRECT 0.5 mg/dl (0-1.1); BILIRUBIN,TOTAL 0.5 mg/dl (0.2-1.3); CALCIUM 9.6 mg/dl (8.4-10.2); CREATININE 0.95 mg/dl (0.61-1.24); TOTAL PROTEIN 7.8 g/dl (6.1-8.1)
[2017-08-30] MEDS: CHOLECALCIFEROL 1,000 UNIT TAB PO SCH (08:47)
[2017-08-30] MEDS: GABAPENTIN 300 MG CAP PO SCH (08:47)
[2017-08-30] MEDS: ESCITALOPRAM 10 MG TAB PO SCH (08:47)
[2017-08-30] MEDS: MULTIVITAMINS THERAPEUTIC TAB PO SCH (08:47)
[2017-08-30] MEDS: ASPIRIN (EC) 81 MG TAB PO SCH (08:47)
[2017-08-30] MEDS: FELODIPINE (ER) 2.5 MG TAB PO SCH ×2 (08:48→23:46)
[2017-08-30] MEDS: SOD FERRIC GLUC COMPLX 125 MG in SOD CHLORIDE 0.9% 100 ML IVPB SCH (12:53)
--- NOTE | 2017-08-30 14:43 | CONS ---
Date/Time of Note Date/Time of Note DATE: 08/30/17 TIME: 14:36 Consult Date/Type/Reason Admit Date/Time Aug 25, 2017 at 18:10 Initial Consult Date 08/26/17 Type of Consultation: GI Ordering Provider: FEI MENENDEZ MD Subjective No bleeding noted No complaints post EGD/Colonoscopy Objective Vital Signs Date Time Temp Pulse Resp B/P Pulse Ox O2 Delivery O2 Flow Rate FiO2 08/30/17 12:06 50 08/30/17 11:23 98.9 18 113/63 97 08/29/17 13:54 Room Air 08/29/17 13:14 5 Abdomen: soft, non tender Intake and Output 08/29/17 08/29/17 08/30/17 15:00 23:00 07:00 Intake Total 410 ml 400 ml Output Total 3 ml Balance 410 ml 397 ml Results/Medications Result Diagram: 08/30/17 0626 08/30/17 0626 Results 24 hrs Laboratory Tests Test 08/30/17 06:26 White Blood Count 4.1 L Red Blood Count 3.41 L Hemoglobin 9.3 L Hematocrit 30.8 L Mean Corpuscular Volume 90.3 Mean Corpuscular Hemoglobin 27.3 L Mean Corpuscular Hemoglobin Concent 30.2 L Red Cell Distribution Width 17.1 H Platelet Count 133 L Mean Platelet Volume 12.9 H Neutrophils % 58.1 Lymphocytes % 27.4 Monocytes % 10.2 Eosinophils % 3.6 Basophils % 0.5 Nucleated Red Blood Cells % 0.0 Neutrophils # 2.4 Lymphocytes # 1.1 Monocytes # 0.4 Eosinophils # 0.2 Basophils # 0.0 Nucleated Red Blood Cells # 0.0 Sodium Level 141 Potassium Level 4.0 Chloride Level 105 Carbon Dioxide Level 27 Anion Gap 13 # Blood Urea Nitrogen 9 Creatinine 0.95 Glucose Level 113 Calcium Level 9.6 Total Bilirubin 0.5 Direct Bilirubin 0.00 Indirect Bilirubin 0.5 Aspartate Amino Transf (AST/SGOT) 82 H Alanine Aminotransferase (ALT/SGPT) 72 H Alkaline Phosphatase 118 Total Protein 7.8 Albumin 4.0 Globulin 3.80 H Albumin/Globulin Ratio 1.05 Medications Current Medications Acetaminophen (Tylenol Tab) 650 mg Q6H PRN PO FEVER; Start 08/25/17 at 22:00 Zolpidem Tartrate (Ambien) 5 mg QHS PRN PO INSOMNIA Last administered on 22:09; Admin Dose 5 MG; Start 08/25/17 at 22:00 Aspirin (Halfprin) 81 mg DAILY PO Last administered on 08/30/17 08:47; Admin Dose 81 MG; Start 08/26/17 at 09:00 Cholecalciferol (Vitamin D) 1,000 unit DAILY PO Last administered on 08/30/17 08:47; Admin Dose 1,000 UNIT; Start 08/26/17 at 09:00 Docusate Sodium (Colace) 100 mg QHS PO Last administered on 08/29/17 21:54; Admin Dose 100 MG; Start 08/26/17 at 21:00 Escitalopram Oxalate (Lexapro) 10 mg DAILY PO Last administered on 08/30/17 08 :47; Admin Dose 10 MG; Start 08/26/17 at 09:00 Gabapentin (Neurontin) 300 mg QAM PO Last administered on 08/30/17 08:47; Admin Dose 300 MG; Start 08/26/17 at 09:00 Lisinopril (Zestril) 5 mg QHS PO Last administered on 08/29/17 21:57; Admin Dose 5 MG; Start 08/26/17 at 21:00 Multivitamins Therapeutic (Theragran) 1 tab DAILY PO Last administered on 08:47; Admin Dose 1 TAB; Start 08/26/17 at 09:00 Polyethylene Glycol (Miralax) 8.5 gm QHS PO Last administered on 08/29/17 22: 00; Admin Dose 8.5 GM; Start 08/26/17 at 21:00 Tamsulosin HCl (Flomax) 0.4 mg QHS PO Last administered on 08/29/17 21:54; Admin Dose 0.4 MG; Start 08/26/17 at 21:00 Zolpidem Tartrate (Ambien) 10 mg QHS PRN PO INSOMNIA Last administered on 23:03; Admin Dose 10 MG; Start 08/25/17 at 22:00 Acetaminophen (Tylenol Tab) 650 mg Q4H PRN PO NON-CARDIAC PAIN LEVEL 1-3; Start 08/26/17 at 16:30 Oxycodone/ Acetaminophen (Percocet (5/ 325)) 1 tab Q4H PRN PO REPORTED NON- CARDIAC PAIN 4-7; Start 08/26/17 at 16:30 Al Hydrox/Mg Hydrox/Simethicone (Mag-Al Plus) 30 ml Q4H PRN PO GASTROINTESTINAL UPSET; Start 08/26/17 at 16:30 Ondansetron HCl (Zofran Inj) 4 mg Q4H PRN IV NAUSEA AND/OR VOMITING; Start at 16:30 Felodipine (Plendil) 2.5 mg BID PO Last administered on 08/30/17 08:48; Admin Dose 2.5 MG; Start 08/28/17 at 21:00 Atorvastatin Calcium (Lipitor) 40 mg HS PO Last administered on 08/29/17 21:54 ; Admin Dose 40 MG; Start 08/29/17 at 21:00 Assessment/Plan Chief Complaint/Hosp Course Impression: 1. GI blood loss could have been from duodenal telangiectasia which was cauterized or gastric erosions 2. Ulcerated anal nodule will like cause BRBPR Suggest: 1. Await biopsy results(specimen not sent to pathology by GI lab yesterday) 2. Follow H/H and Stools OB 3. Continue ppi BID ac 4. If additional evidence of blood loss, would consider SB Capsule study 5. Suggest having proctology remove ulcerated anal nodule electively because given likely need for anticoagulation will likely bleed repeatedly 6. I will sign off for now. Will be happy to see again at your request 7. Discussed above with patient, and daughter Problems: MARINA AWAN MD Aug 30, 2017 14:43
[2017-08-30] MEDS ORDERED: DIAZEPAM 5 MG TAB PO ONE (14:52)
[2017-08-30] MEDS ORDERED: LIDOCAINE 1% (MDV) 20 ML INJ ONE (15:27)
[2017-08-30] MEDS ORDERED: IODIXANOL LOCM 100 ML BTL ONE ×4 (15:27→18:17)
[2017-08-30] MEDS ORDERED: VERAPAMIL 5 MG INJ ONE (15:28)
[2017-08-30] MEDS ORDERED: FENTAnyl 50 MCG/ML VIAL ONE ×2 (15:28→18:05)
[2017-08-30] MEDS ORDERED: MIDAZOLAM 1 MG/ML 2 ML INJ ONE ×2 (15:28→17:13)
[2017-08-30] MEDS ORDERED: NITROGLYCERIN (IC) 100 MCG/ML INJ ONE (15:28)
[2017-08-30] MEDS ORDERED: CLOPIDOGREL 300 MG TAB ONE (16:00)
[2017-08-30] MEDS ORDERED: IOHEXOL 350MG/ML 50 ML BTL ONE (16:55)
--- NOTE | 2017-08-30 17:32 | PN ---
Date/Time of Note Date/Time of Note DATE: 08/30/17 TIME: 17:24 Assessment/Plan VTE Prophylaxis VTE Prophylaxis Intervention: other Lines/Catheters IV [facility]from [facility] [place] [facility] Urinary Cath still in place: No Assessment/Plan Chief Complaint/Hosp Course 1. Coronary artery disease with exertional chest pain and chest pressure. Troponins are negative for acute CO. He has no chest pain or shortness of breath today . He has been seen by cardiology and they recommended a coronary angiogram . He will have an angiogram today . 2. Anemia, due to iron deficiency, rule out GI bleeding . He is getting IV Ferrelicit and his H/H is higher . He had an UGD and colonoscopy yesterday . He was found to have a gastric erosion , duodenal telangectasia and an ulcerated anal nodule . 3. Hyperlipidemia, Will restart lipitor . 4. Prostate cancer status post radiation therapy 5. Right total hip replacement in April of this year Problems: Subjective 24 Hr Interval Summary Free Text/Dictation He has no new complaints today . Denies CP or SOB . Constitutional: improved, no complaints Respiratory: no complaints Cardiovascular: no complaints Gastrointestinal: no complaints Genitourinary: no complaints Neurologic: no complaints Exam/Review of Systems Vital Signs Vitals Vital Signs Date Time Temp Pulse Resp B/P Pulse Ox O2 Delivery O2 Flow Rate FiO2 08/30/17 12:06 50 08/30/17 11:23 98.9 18 113/63 97 08/29/17 13:54 Room Air 08/29/17 13:14 5 Intake and Output 08/29/17 08/29/17 08/30/17 15:00 23:00 07:00 Intake Total 410 ml 400 ml Output Total 3 ml Balance 410 ml 397 ml Exam ENMT: nl external ears & nose Respiratory: clear to auscultation Cardiovascular: murmurs/extra sounds, regular rate and rhythm Gastrointestinal: soft Musculoskeletal: nl extremities to inspection Results Result Diagram: 08/30/17 0626 08/30/17 0626 Results 24 hrs Laboratory Tests Test 08/30/17 06:26 White Blood Count 4.1 L Red Blood Count 3.41 L Hemoglobin 9.3 L Hematocrit 30.8 L Mean Corpuscular Volume 90.3 Mean Corpuscular Hemoglobin 27.3 L Mean Corpuscular Hemoglobin Concent 30.2 L Red Cell Distribution Width 17.1 H Platelet Count 133 L Mean Platelet Volume 12.9 H Neutrophils % 58.1 Lymphocytes % 27.4 Monocytes % 10.2 Eosinophils % 3.6 Basophils % 0.5 Nucleated Red Blood Cells % 0.0 Neutrophils # 2.4 Lymphocytes # 1.1 Monocytes # 0.4 Eosinophils # 0.2 Basophils # 0.0 Nucleated Red Blood Cells # 0.0 Sodium Level 141 Potassium Level 4.0 Chloride Level 105 Carbon Dioxide Level 27 Anion Gap 13 # Blood Urea Nitrogen 9 Creatinine 0.95 Glucose Level 113 Calcium Level 9.6 Total Bilirubin 0.5 Direct Bilirubin 0.00 Indirect Bilirubin 0.5 Aspartate Amino Transf (AST/SGOT) 82 H Alanine Aminotransferase (ALT/SGPT) 72 H Alkaline Phosphatase 118 Total Protein 7.8 Albumin 4.0 Globulin 3.80 H Albumin/Globulin Ratio 1.05 Medications Medications Current Medications Acetaminophen (Tylenol Tab) 650 mg Q6H PRN PO FEVER; Start 08/25/17 at 22:00 Zolpidem Tartrate (Ambien) 5 mg QHS PRN PO INSOMNIA Last administered on 22:09; Admin Dose 5 MG; Start 08/25/17 at 22:00 Aspirin (Halfprin) 81 mg DAILY PO Last administered on 08/30/17 08:47; Admin Dose 81 MG; Start 08/26/17 at 09:00 Cholecalciferol (Vitamin D) 1,000 unit DAILY PO Last administered on 08/30/17 08:47; Admin Dose 1,000 UNIT; Start 08/26/17 at 09:00 Docusate Sodium (Colace) 100 mg QHS PO Last administered on 08/29/17 21:54; Admin Dose 100 MG; Start 08/26/17 at 21:00 Escitalopram Oxalate (Lexapro) 10 mg DAILY PO Last administered on 08/30/17 08 :47; Admin Dose 10 MG; Start 08/26/17 at 09:00 Gabapentin (Neurontin) 300 mg QAM PO Last administered on 08/30/17 08:47; Admin Dose 300 MG; Start 08/26/17 at 09:00 Lisinopril (Zestril) 5 mg QHS PO Last administered on 08/29/17 21:57; Admin Dose 5 MG; Start 08/26/17 at 21:00 Multivitamins Therapeutic (Theragran) 1 tab DAILY PO Last administered on 08:47; Admin Dose 1 TAB; Start 08/26/17 at 09:00 Polyethylene Glycol (Miralax) 8.5 gm QHS PO Last administered on 08/29/17 22: 00; Admin Dose 8.5 GM; Start 08/26/17 at 21:00 Tamsulosin HCl (Flomax) 0.4 mg QHS PO Last administered on 08/29/17 21:54; Admin Dose 0.4 MG; Start 08/26/17 at 21:00 Zolpidem Tartrate (Ambien) 10 mg QHS PRN PO INSOMNIA Last administered on 23:03; Admin Dose 10 MG; Start 08/25/17 at 22:00 Acetaminophen (Tylenol Tab) 650 mg Q4H PRN PO NON-CARDIAC PAIN LEVEL 1-3; Start 08/26/17 at 16:30 Oxycodone/ Acetaminophen (Percocet (5/ 325)) 1 tab Q4H PRN PO REPORTED NON- CARDIAC PAIN 4-7; Start 08/26/17 at 16:30 Al Hydrox/Mg Hydrox/Simethicone (Mag-Al Plus) 30 ml Q4H PRN PO GASTROINTESTINAL UPSET; Start 08/26/17 at 16:30 Ondansetron HCl (Zofran Inj) 4 mg Q4H PRN IV NAUSEA AND/OR VOMITING; Start at 16:30 Felodipine (Plendil) 2.5 mg BID PO Last administered on 08/30/17 08:48; Admin Dose 2.5 MG; Start 08/28/17 at 21:00 Atorvastatin Calcium (Lipitor) 40 mg HS PO Last administered on 08/29/17 21:54 ; Admin Dose 40 MG; Start 08/29/17 at 21:00 Pantoprazole (Protonix Tab) 40 mg ,18 PO ; Start 08/30/17 at 18:00 FEI MENENDEZ MD Aug 30, 2017 17:32
[2017-08-30] MEDS ORDERED: NITROGLYCERIN (SL) 0.4 MG TAB ONE (18:37)
[2017-08-30] MEDS ORDERED: SOD CHLORIDE 0.9% 1,000 ML IV SCH (18:48)
--- NOTE | 2017-08-30 18:53 | SIPON ---
Date/Time of Note Date/Time of Note DATE: 08/30/17 TIME: 18:51 Operative Report Preoperative Diagnosis CAD Postoperative Diagnosis CAD Operation/Procedure Performed 1) Coronary Angiography 2) Unsuccessful attempted PCI of rPDA unable to cross lesion with balloon 3) POBA of mid LAD 4) Unsuccessful attempted PIC of mid LAD unable to cross lesion with stent 5) Administration of moderate sedation Surgeon see signature line assistant floor covering printer n/a Anesthesia: moderate sedation Estimated blood loss: 50 - 100 ml's Transfusion Required none Specimen none Grafts/Implants none Complications none MARIA ISABEL FOLEY Aug 30, 2017 18:53
[2017-08-30] MEDS: TAMSULOSIN (SR) 0.4 MG CAP PO SCH (21:49)
[2017-08-30] MEDS: RANOLAZINE (SR) 500 MG TAB PO SCH (21:49)
[2017-08-30] MEDS: ISOSORBIDE DINITRATE 5 MG TAB PO SCH (21:50)
[2017-08-30] MEDS: POLYETHYLENE GLYCOL 17 GM PACKET PO SCH (23:44)
[2017-08-30] MEDS: ZOLPIDEM 5 MG TAB PO PRN (23:45)
[2017-08-30] MEDS: DOCUSATE SODIUM 100 MG CAP PO SCH (23:45)
[2017-08-30] MEDS: ATORVASTATIN 40 MG TAB PO SCH (23:45)
[2017-08-30] MEDS: LISINOPRIL 5 MG TAB PO SCH (23:46)
--- NOTE | 2017-08-30 23:58 | CONS ---
Date/Time of Note Date/Time of Note DATE: 08/30/17 TIME: 23:52 Assessment/Plan Assessment/Plan Chief Complaint/Hosp Course ASSESSMENT: 1. Coronary artery disease 2 vessel significant stenosis mid LAD and mid to distal PDA with several coronary aneurysms noted. unable to revascularize rPDA or mid LAD due to vessel tortuosity and calcification. cont medical mgmt, consider high risk PCI if unable to control sx with medications. 2. Anemia- iron def, has gastric ulcer, duodenal telangiectasia s/p cautery. hgb stable 3. 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 4. Mildly elevated liver tests due to fatty liver, increasing. 5. Moderate aortic stenosis. 6. Hyperlipidemia. 7. Obstructive sleep apnea on CPAP. 8 History of prostate cancer with radiation therapy and currently on Lupron. PLAN: 1. cont asa 81 mg daily 2. cont plavix 75 mg daily if tolerating without bleeding 3. cont statin 4. unable to tolerate bb as hrs 40s-50s at rest 5. cont felodipine 6. cont ppi per GI 7. add low dose isordil 5mg po tid 8. add ranexa 500mg po bid Problems: Consultation Date/Type/Reason Admit Date/Time Aug 25, 2017 at 18:10 Initial Consult Date 08/26/17 Type of Consultation: cardiology Referring Provider: FEI MENENDEZ MD 24 HR Interval Summary Free Text/Dictation no acute events. denies any cp/sob. pt loaded with plavix, denies bleeding. had attempted LHC this afternoon, unable to pass any balloon past distal rPDA lesion due to severe stenosis, calcified lesion In addition, able to PTCA alone to mid LAD but has recoil, unable to pass stent to mid LAD lesion. procedure concluded without success. pt initially wiht cp post PTCA of mid LAD, but now cp free tele reviewed: sinus braeden Detailed Summary Eyes: no complaints ENT: no complaints Respiratory: no complaints Cardiovascular: no complaints Gastrointestinal: no complaints Exam/Review of Systems Vital Signs Vitals Vital Signs Date Time Temp Pulse Resp B/P Pulse Ox O2 Delivery O2 Flow Rate FiO2 08/30/17 22:10 52 15 113/63 100 Room Air 08/30/17 19:05 98.2 08/29/17 13:14 5 Intake and Output 08/29/17 08/29/17 08/30/17 15:00 23:00 07:00 Intake Total 410 ml 400 ml Output Total 3 ml Balance 410 ml 397 ml Exam HEENT; no JVD, no HJR, carotids 2 over 4+ without bruits. Chest: Clear to auscultation and percussion, no rales, wheezes or rhonchi. Cardiac: S4, S1, S2 with normal physiologic splitting, 2/6 early to mid systolic ejection murmur, no rub click or diastolic murmur noted. Abdominal: Bowel sounds positive, soft nontender, no abdominal bruit noted, no hepatosplenomegaly. Extremities: No cyanosis, clubbing, or edema. Results Result Diagram: 08/30/1726 08/30/17 06 Results 24 hrs Laboratory Tests Test 08/30/17 06:26 White Blood Count 4.1 L Red Blood Count 3.41 L Hemoglobin 9.3 L Hematocrit 30.8 L Mean Corpuscular Volume 90.3 Mean Corpuscular Hemoglobin 27.3 L Mean Corpuscular Hemoglobin Concent 30.2 L Red Cell Distribution Width 17.1 H Platelet Count 133 L Mean Platelet Volume 12.9 H Neutrophils % 58.1 Lymphocytes % 27.4 Monocytes % 10.2 Eosinophils % 3.6 Basophils % 0.5 Nucleated Red Blood Cells % 0.0 Neutrophils # 2.4 Lymphocytes # 1.1 Monocytes # 0.4 Eosinophils # 0.2 Basophils # 0.0 Nucleated Red Blood Cells # 0.0 Sodium Level 141 Potassium Level 4.0 Chloride Level 105 Carbon Dioxide Level 27 Anion Gap 13 # Blood Urea Nitrogen 9 Creatinine 0.95 Glucose Level 113 Calcium Level 9.6 Total Bilirubin 0.5 Direct Bilirubin 0.00 Indirect Bilirubin 0.5 Aspartate Amino Transf (AST/SGOT) 82 H Alanine Aminotransferase (ALT/SGPT) 72 H Alkaline Phosphatase 118 Total Protein 7.8 Albumin 4.0 Globulin 3.80 H Albumin/Globulin Ratio 1.05 Imaging Free Text/Dictation imaging/provider notes reviewed in emr Medications Medications Current Medications Acetaminophen (Tylenol Tab) 650 mg Q6H PRN PO FEVER; Start 08/25/17 at 22:00 Zolpidem Tartrate (Ambien) 5 mg QHS PRN PO INSOMNIA Last administered on 22:09; Admin Dose 5 MG; Start 08/25/17 at 22:00 Aspirin (Halfprin) 81 mg DAILY PO Last administered on 08/30/17 08:47; Admin Dose 81 MG; Start 08/26/17 at 09:00 Cholecalciferol (Vitamin D) 1,000 unit DAILY PO Last administered on 08/30/17 08:47; Admin Dose 1,000 UNIT; Start 08/26/17 at 09:00 Docusate Sodium (Colace) 100 mg QHS PO Last administered on 08/30/17 23:45; Admin Dose 100 MG; Start 08/26/17 at 21:00 Escitalopram Oxalate (Lexapro) 10 mg DAILY PO Last administered on 08/30/17 08 :47; Admin Dose 10 MG; Start 08/26/17 at 09:00 Gabapentin (Neurontin) 300 mg QAM PO Last administered on 08/30/17 08:47; Admin Dose 300 MG; Start 08/26/17 at 09:00 Lisinopril (Zestril) 5 mg QHS PO Last administered on 08/30/17 23:46; Admin Dose 5 MG; Start 08/26/17 at 21:00 Multivitamins Therapeutic (Theragran) 1 tab DAILY PO Last administered on 08:47; Admin Dose 1 TAB; Start 08/26/17 at 09:00 Polyethylene Glycol (Miralax) 8.5 gm QHS PO Last administered on 08/30/17 23: 44; Admin Dose 8.5 GM; Start 08/26/17 at 21:00 Tamsulosin HCl (Flomax) 0.4 mg QHS PO Last administered on 08/30/17 21:49; Admin Dose 0.4 MG; Start 08/26/17 at 21:00 Zolpidem Tartrate (Ambien) 10 mg QHS PRN PO INSOMNIA Last administered on 23:45; Admin Dose 10 MG; Start 08/25/17 at 22:00 Acetaminophen (Tylenol Tab) 650 mg Q4H PRN PO NON-CARDIAC PAIN LEVEL 1-3 Last administered on 08/30/17 19:35; Admin Dose 650 MG; Start 08/26/17 at 16:30 Oxycodone/ Acetaminophen (Percocet (5/ 325)) 1 tab Q4H PRN PO REPORTED NON- CARDIAC PAIN 4-7; Start 08/26/17 at 16:30 Al Hydrox/Mg Hydrox/Simethicone (Mag-Al Plus) 30 ml Q4H PRN PO GASTROINTESTINAL UPSET; Start 08/26/17 at 16:30 Ondansetron HCl (Zofran Inj) 4 mg Q4H PRN IV NAUSEA AND/OR VOMITING; Start at 16:30 Felodipine (Plendil) 2.5 mg BID PO Last administered on 08/30/17 23:46; Admin Dose 2.5 MG; Start 08/28/17 at 21:00 Atorvastatin Calcium (Lipitor) 40 mg HS PO Last administered on 08/30/17 23:45 ; Admin Dose 40 MG; Start 08/29/17 at 21:00 Pantoprazole (Protonix Tab) 40 mg PO Last administered on 08/30/17 23:44 ; Admin Dose 40 MG; Start 08/30/17 at 18:00 Clopidogrel Bisulfate (plaVIX) 75 mg DAILY PO ; Start 08/31/17 at 09:00 Isosorbide Dinitrate (Isordil) 5 mg TID PO Last administered on 08/30/17 21:50 ; Admin Dose 5 MG; Start 08/30/17 at 21:00 Ranolazine (Ranexa) 500 mg Q12 PO Last administered on 08/30/17 21:49; Admin Dose 500 MG; Start 08/30/17 at 21:00 MARIA ISABEL FOLEY Aug 30, 2017 23:58
[2017-08-31] VITALS (9 sets, daily range): BP systolic 105–130; BP diastolic 56–64; PULSE 40–55; RESP 18
[2017-08-31] MEDS: PANTOPRAZOLE (EC) 40 MG TAB PO SCH (06:30)
[2017-08-31] MEDS ORDERED: CLOPIDOGREL 75 MG TAB PO SCH (09:00)
[2017-08-31] MEDS: RANOLAZINE (SR) 500 MG TAB PO SCH (09:08)
[2017-08-31] MEDS: MULTIVITAMINS THERAPEUTIC TAB PO SCH (09:09)
[2017-08-31] MEDS: ESCITALOPRAM 10 MG TAB PO SCH (09:09)
--- NOTE | 2017-08-31 09:10 | CONS ---
Date/Time of Note Date/Time of Note DATE: 08/31/17 TIME: 09:06 Assessment/Plan Assessment/Plan Chief Complaint/Hosp Course ASSESSMENT: 1. Coronary artery disease 2 vessel significant stenosis mid LAD and mid to distal PDA with several coronary aneurysms noted. unable to revascularize rPDA or mid LAD due to vessel tortuosity and calcification. cont medical mgmt, consider high risk PCI if unable to control sx with medications. 2. Anemia- iron def, has gastric ulcer, duodenal telangiectasia s/p cautery. hgb stable 3. 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 4. Mildly elevated liver tests due to fatty liver, increasing. 5. Moderate aortic stenosis. 6. Hyperlipidemia. 7. Obstructive sleep apnea on CPAP. 8 History of prostate cancer with radiation therapy and currently on Lupron. PLAN: 1. cont asa 81 mg daily 2. cont plavix 75 mg daily if tolerating without bleeding 3. cont statin 4. unable to tolerate beta anna due to sinus braeden with hrs 40s-50s at rest now off atenolol x 6 days 5. cont felodipine 6. cont ppi per GI 7. cont low dose isordil 5mg po tid as tolerate by headache 8. cont ranexa 500mg po bid if ambulatory without persistent chest pain, ok to discharge home with closer outpatient follow up. consider high risk PCI vs. CABG if angina resistant to medical therapy. discussed with Dr. Mason Problems: Consultation Date/Type/Reason Admit Date/Time Aug 25, 2017 at 18:10 Initial Consult Date 08/26/17 Type of Consultation: cardiology Referring Provider: FEI MENENDEZ MD 24 HR Interval Summary Free Text/Dictation pt doing well, chest pain resolved post procedure. had one episode overnight lasting a min while up to bathroom, no pain this am. no sob, jaw/arm pain, n/v, diaphoresis tele reviewed: sinus braeden 40s-50s. Detailed Summary ENT: no complaints Respiratory: no complaints Cardiovascular: chest pain Gastrointestinal: no complaints Genitourinary: no complaints Exam/Review of Systems Vital Signs Vitals Vital Signs Date Time Temp Pulse Resp B/P Pulse Ox O2 Delivery O2 Flow Rate FiO2 08/31/17 08:00 48 08/31/17 07:33 97.6 18 105/58 98 08/30/17 22:10 Room Air 08/29/17 13:14 5 Intake and Output 08/30/17 08/30/17 08/31/17 15:00 23:00 07:00 Intake Total 400 ml 600 ml Balance 400 ml 600 ml Exam HEENT; no JVD, no HJR, carotids 2 over 4+ without bruits. Chest: Clear to auscultation and percussion, no rales, wheezes or rhonchi. Cardiac: S4, S1, S2 with normal physiologic splitting, 2/6 early to mid systolic ejection murmur, no rub click or diastolic murmur noted. Abdominal: Bowel sounds positive, soft nontender, no abdominal bruit noted, no hepatosplenomegaly. Extremities: No cyanosis, clubbing, or edema. R wrist 2+ radial, mild bruising, no ttp Results Result Diagram: 08/30/1762508/30/17625 Medications Medications Current Medications Acetaminophen (Tylenol Tab) 650 mg Q6H PRN PO FEVER; Start 08/25/17 at 22:00 Zolpidem Tartrate (Ambien) 5 mg QHS PRN PO INSOMNIA Last administered on 22:09; Admin Dose 5 MG; Start 08/25/17 at 22:00 Aspirin (Halfprin) 81 mg DAILY PO Last administered on 08/30/17 08:47; Admin Dose 81 MG; Start 08/26/17 at 09:00 Cholecalciferol (Vitamin D) 1,000 unit DAILY PO Last administered on 08/30/17 08:47; Admin Dose 1,000 UNIT; Start 08/26/17 at 09:00 Docusate Sodium (Colace) 100 mg QHS PO Last administered on 08/30/17 23:45; Admin Dose 100 MG; Start 08/26/17 at 21:00 Escitalopram Oxalate (Lexapro) 10 mg DAILY PO Last administered on 08/30/17 08 :47; Admin Dose 10 MG; Start 08/26/17 at 09:00 Gabapentin (Neurontin) 300 mg QAM PO Last administered on 08/30/17 08:47; Admin Dose 300 MG; Start 08/26/17 at 09:00 Lisinopril (Zestril) 5 mg QHS PO Last administered on 08/30/17 23:46; Admin Dose 5 MG; Start 08/26/17 at 21:00 Multivitamins Therapeutic (Theragran) 1 tab DAILY PO Last administered on 08:47; Admin Dose 1 TAB; Start 08/26/17 at 09:00 Polyethylene Glycol (Miralax) 8.5 gm QHS PO Last administered on 08/30/17 23: 44; Admin Dose 8.5 GM; Start 08/26/17 at 21:00 Tamsulosin HCl (Flomax) 0.4 mg QHS PO Last administered on 08/30/17 21:49; Admin Dose 0.4 MG; Start 08/26/17 at 21:00 Zolpidem Tartrate (Ambien) 10 mg QHS PRN PO INSOMNIA Last administered on 23:45; Admin Dose 10 MG; Start 08/25/17 at 22:00 Acetaminophen (Tylenol Tab) 650 mg Q4H PRN PO NON-CARDIAC PAIN LEVEL 1-3 Last administered on 08/30/17 19:35; Admin Dose 650 MG; Start 08/26/17 at 16:30 Oxycodone/ Acetaminophen (Percocet (5/ 325)) 1 tab Q4H PRN PO REPORTED NON- CARDIAC PAIN 4-7; Start 08/26/17 at 16:30 Al Hydrox/Mg Hydrox/Simethicone (Mag-Al Plus) 30 ml Q4H PRN PO GASTROINTESTINAL UPSET; Start 08/26/17 at 16:30 Ondansetron HCl (Zofran Inj) 4 mg Q4H PRN IV NAUSEA AND/OR VOMITING; Start at 16:30 Felodipine (Plendil) 2.5 mg BID PO Last administered on 08/30/17 23:46; Admin Dose 2.5 MG; Start 08/28/17 at 21:00 Atorvastatin Calcium (Lipitor) 40 mg HS PO Last administered on 08/30/17 23:45 ; Admin Dose 40 MG; Start 08/29/17 at 21:00 Pantoprazole (Protonix Tab) 40 mg ,18 PO Last administered on 08/31/17 06:30 ; Admin Dose 40 MG; Start 08/30/17 at 18:00 Clopidogrel Bisulfate (plaVIX) 75 mg DAILY PO ; Start 08/31/17 at 09:00 Isosorbide Dinitrate (Isordil) 5 mg TID PO Last administered on 08/30/17 21:50 ; Admin Dose 5 MG; Start 08/30/17 at 21:00 Ranolazine (Ranexa) 500 mg Q12 PO Last administered on 08/30/17 21:49; Admin Dose 500 MG; Start 08/30/17 at 21:00 Procedures Procedures provider notes reviewed MARIA ISABEL FOLEY Aug 31, 2017 09:10
[2017-08-31] MEDS: GABAPENTIN 300 MG CAP PO SCH (09:12)
[2017-08-31] MEDS: ASPIRIN (EC) 81 MG TAB PO SCH (09:12)
[2017-08-31] MEDS: ISOSORBIDE DINITRATE 5 MG TAB PO SCH ×2 (09:13→13:31)
[2017-08-31] MEDS: FELODIPINE (ER) 2.5 MG TAB PO SCH (09:14)
[2017-08-31] MEDS: CHOLECALCIFEROL 1,000 UNIT TAB PO SCH (09:15)
[2017-08-31 10:08] LABS: BASOPHILS % 0.4 % (0.0-2.0); EOSINOPHILS # 0.1 10^3/ul (0.0-0.5); EOSINOPHILS % 2.5 % (0.0-7.0); HEMATOCRIT 32.4 % (42.0-52.0); HEMOGLOBIN 9.9 g/dl (14.0-18.0); LYMPHOCYTES # 0.9 10^3/ul (0.8-2.9); MEAN CORPUSCULAR HEMOGLOBIN 27.6 pg (29.0-33.0); MEAN CORPUSCULAR HGB CONC 30.6 g/dl (32.0-37.0); MEAN CORPUSCULAR VOLUME 90.3 fl (82.0-101.0); MEAN PLATELET VOLUME 12.1 fl (7.4-10.4); MONOCYTE # 0.4 10^3/ul (0.3-0.9); MONOCYTES % 8.5 % (0.0-11.0); NEUTROPHIL # 3.1 10^3/ul (1.6-7.5); NEUTROPHILS % 69.4 % (39.0-77.0); PLATELET COUNT 139 10^3/UL (140-415); RED BLOOD COUNT 3.59 10^6/ul (4.70-6.10); RED CELL DISTRIBUTION WIDTH 17.4 % (11.5-14.5); WHITE BLOOD COUNT 4.5 10^3/ul (4.8-10.8)
[2017-08-31 10:26] LABS: ALBUMIN 4.6 g/dl (3.3-4.9); ALBUMIN/GLOBULIN RATIO 1.12; BILIRUBIN,INDIRECT 0.8 mg/dl (0-1.1); BILIRUBIN,TOTAL 0.8 mg/dl (0.2-1.3); CALCIUM 9.8 mg/dl (8.4-10.2); CREATININE 0.93 mg/dl (0.61-1.24); POTASSIUM 3.9 mmol/L (3.5-5.1); TOTAL PROTEIN 8.7 g/dl (6.1-8.1)
--- NOTE | 2017-08-31 13:07 | PDOCDIS ---
Discharge Instructions DIAGNOSIS Discharge Diagnosis CAD, Anemia CONDITION Patient Condition: Good HOME CARE INSTRUCTIONS: Diet Instructions: Low Fat /CholesterolSpecial Diet: LOW CHOLESTEROL AND LOW FAT ACTIVITY: Activity Restrictions: Slowly Increase Activity Rest between Activity Avoid heavy lifting Do not operate Machinery Weight Bearing Bathing Restrictions: Shower FOLLOW UP/APPOINTMENTS Follow-up Plan FEI Segura MD Aug 31, 2017 13:07
--- NOTE | 2017-09-01 00:25 | OPR ---
Date/Time of Note Date/Time of Note DATE: 08/30/17 TIME: 1999 Operative Report Procedure Date: Aug 30, 2017 Preoperative Diagnosis 1. Unstable Angina 2. Multi vessel Coronary artery disease 3. Anemia Postoperative Diagnosis 1. Multi-vessel coronary artery disease. Operation/Procedure Performed 1. Coronary angiography 2. Balloon angioplasty only of mid LAD 3. Balloon angioplasty of distal rPDA 4. Administration of moderate sedation Surgeon see signature line Market Risk Manager n/a Anesthesia Type: moderate sedation Anesthesiologist: MARIA ISABEL FOLEY Estimated Blood Loss: 50 - 100 ml's Transfusion none Specimen none Grafts/Implants none Complications none Procedure Description PROCEDURE DESCRIPTION: Right wrist was prepped and draped in usual sterile fashion and anesthetized with 1% lidocaine solution. A 6-[place] slender sheath was placed in the right radial artery without difficulty using through and through technique. IA nitoglycerine was given. IV heparin given, ACT checked and confirmed to be in therapeutic range. PO asa and clopidogrel given prior to procedure. A 6-Citizen [place] 3DRC guide was advanced advanced to the ascending aorta over a wire and cineangiography was performed of the right coronary arteries. 180 cm runthrough 0;014" wire was advanced to distal RCA. 6Fr Guidezilla support catheter was advanced to distal RCA over 2.0mm emerge balloon. balloon would not cross lesion. balloon exchanged for a 1.2 x 8 mm balloon but this would not cross distal rPDA lesion due to lesion calcification and severe stenosis. A Euphora 1.5 x 6mm was advanced to rPDA prior to lesion and inflated to high pressure. balloon exchanged for a 2.0mm emerge which would not pass lesion, this was exchanged for a euphora NC 2.25mm balloon which was inflated prior to stent, but this too would not pass area of stenosis. repeat angiograms were obtained showing DESTINY 3 flow with residual 95% stenosis. no evidence of dissection/perforation/complication. Given inability to pass equipment past lesion, decision was made to stop further attempts of PCI of rPDA at this point. Guidezilla and wire removed. Guide was removed and attention turned to LAD stenosis A 6Fr XB 3.5 guide was advanced to ascending aorta and used to engage LCA. The 180 cm runthrough wire would not cross mid LAD, it was exchanged for a 190cm 0.014" whisper wire which was advanced to distal LAD. Guiezilla catheter advanced over balloon to proximal LAD. Serial balloon dilation was performed using 1.2 x 8mm then 1.5 x 12mm balloon but residual waste was noted. The Euphora 2.25 x 6mm balloon was used to pre dilate mid LAD lesion and prolonged inflations performed. However residual waste was still noted. Synergy 2.5 x 20mm stent was advance but would not cross lesion. stent removed undeployed, additional predilation of mid LAD performed with euphora nc 2.25mm balloon. Separate Synergy 2.5 x 8mm stent would not past mid LAD as well. and removed undeployed. At this point repeat angiograms obtained showed DESTINY 3 flow, but residual 90% mid LAD stenosis. Given length of procedure, contrast use, and possible need for high risk atherectomy decision was made to stop procedure at this point. Pt did have mild chest pain. otherwise tolerated procedure well. final angiograms showed destiny 3 flow in LAD without evidence of complication. All wires/catheters removed. Hemostasis was obtained of the right radial artery with a TR band. Estimated blood loss was less than 100 mL. No specimens were obtained: FINDINGS: 1. Left main coronary artery: Long large artery. Diffuse disease 20%. Distal LM is aneurysmal 2. Left anterior descending artery: Proximal LAD is aneurysmal. Mid LAD is tortuous with calcified 90% stenosis DESTINY 3 flow. Distal LAD is tortuous with area of severe tortuosity feeding the apical LAD, likely a well developed collateral. D1 is a very small sized artery, does appear to have severe 99% stenosis. D2 and D3 are small without disease. 3. Right coronary artery: Very Large dominant vessel. Proximal RCA is very large and ecstatic, aneurysmal Proximal RCA is aneurysmal with serial 30 and 40 % stenosis. Mid RCA is also very large with ectasia, and anuerysmal in segments with 50% stenosis. Distal RCA is large ectatic with 40% stenosis. Bifurcates to large rPL and rPDA arteries. rPL has 40% diffuse disease, ectasia. rPDA is ectatic with diffuse 40% disease, distal rPDA is still a large vessel with focal calcified 95% stenosis and DESTINY 3 flow. 4. Left circumflex artery: Large non dominant, mid with 40% stenosis. followed by area of ectasia, distal. there is 50% stenosis at origin of distal LCx. 5. Ramus Intermedius- Average sized artery. Tortuosu with 50% stenosis in mid vessel. gives multiple branches with mild diffuse disease. PCI findings: 1) rPDA - unable to pass balloon past lesion, unsuccessful PTCA of distal rPDA. pre stenosis 95%, post stenosis 95%. Pre DESTINY flow 3, post DESTINY flow 3 2) mid LAD- unable to pass stent past lesion, unsuccessful PTCA of mid LAD pre stenosis 90%, post stenosis 90%. Pre DESTINY flow 3, post DESTINY flow 3 CONCLUSIONS: 1. Severe, calcified chornic multivessel coronary artery disease involving distal EVENING SITTER and mid LAD. 2. Unsuccessful PTCA of drPDA and mid LAD RECOMMENDATIONS: 1. continue aspirin 81 mg p.o. daily. 2. continue clopidogrel 75mg po daily 3. continued maximal medical therapy with statin therapy. 4. holding bb due to bradycardia, cont nitrates, add ranexa 5. iron replacement, anemia treatment 6. cont maximal medical therapy for CAD at this time. if pt with continued symptoms despite maximal medical therapy could consider high risk PCI with atherectomy of mid LAD vs. consideration of bypass surgery. MARIA ISABEL FOLEY. Sep 01, 2017 00:24
--- NOTE | 2017-09-01 09:21 | RADRPT ---
Vent Rate: 45 bpm RR Interval: 0 msec [place] Interval: 232 msec QRS Duration: 94 msec QT Interval: 478 msec QTC Interval: 413 msec P-R-T [place]: 22 - 71 - 40 degrees Marked sinus bradycardia with 1st degree AV block Abnormal ECG Electronically Signed By: Kam Heller [id number]
--- NOTE | 2017-09-01 09:24 | RADRPT ---
Vent Rate: 49 bpm RR Interval: 0 msec NV Interval: 218 msec QRS Duration: 100 msec QT Interval: 482 msec QTC Interval: 435 msec P-R-T [place]: 58 - 51 - 60 degrees Marked sinus bradycardia with 1st degree AV block Abnormal ECG Electronically Signed By: Kam Heller [id number]
--- NOTE | 2017-09-01 12:19 | DS ---
DATE OF ADMISSION: 08/25/2017 DATE OF DISCHARGE: 08/31/2017 HISTORY OF PRESENT ILLNESS AND HOSPITAL COURSE: This 77-year-old man was admitted because of increa sing chest pain with exertion. The patient was also found to be anemic. The patient has a history of coronary artery disease. He was seen in consultation by Dr. Brain Humphries, a acid treater. Th e patient underwent a cardiac catheterization while in the hospital. He was found to have significa nt coronary artery disease. The patient did not have an intervention done initially. He was admitt ed and had a hemoglobin of 9.3. He has been quite iron deficient. A stool done as an outpatient sh owed that he had iron deficiency anemia. The patient was seen in consultation by Dr. Niles Mcwilliams, a local fiscal accounting clerk. The patient did undergo a colonoscopy and an upper GI endoscopy. Dr. Jorge gonzalez found that he had a gastric erosion in the stomach and a telangiectasia in the duodenum, which h e cauterized. The patient also had an anal nodule with an ulceration. The patient was given Ferrle cit intravenously while in the hospital. His hemoglobin at the time of discharge was 9.9. The neli ent did undergo another coronary angiogram by Dr. Humphries on 08/30/2017. Again, the patient was fo und to have diffuse coronary artery disease. Dr. Humphries made multiple attempts to try and dilate some of his stenotic coronary artery lesions; however, he was able to balloon 1 stenosis but was uche ble to place any stents. The patient will be sent home today on medication. While in the hospital, 3 medications were added: 1. Isordil 5 mg 3 times a day. 2. Ranexa 500 mg twice a day. 3. Plavix 75 mg a day. 4. He also had his Protonix increased to 40 mg twice a day. The patient will also continue his routine medications at home, which include: 1. Crestor 40 mg a day. 2. Lisinopril 5 mg a day. 3. Felodipine 2.5 mg twice a day. 4. He will stop Atenolol because of bradycardia. 5. He will continue tamsulosin 0.4 mg a day. 6. Lupron injection every 3 months. 7. Aspirin 81 mg a day. 8. Celebrex 200 mg daily. 9. Escitalopram 10 mg a day. 10. Gabapentin 300 mg a day. 11. Zolpidem 10 mg a day. 12. Coenzyme Q10 mg twice a day. The patient was in good condition at the time of discharge. The patient did have an echocardiogram done which did show aortic stenosis. The patient will see me in my office in the next 2 weeks. He will follow up with either his acid treater, Dr. Samayoa. He could follow up with Dr. Brain grayo. DISCHARGE DIAGNOSES: 1. Coronary artery disease. 2. Iron deficiency anemia. 3. Gastric erosion. 4. Duodenal telangiectasia. 5. Hyperlipidemia. 6. Anal nodule with ulceration. Dictated By: FEI MENENDEZ MD, ND/MARIELOS Conf#: [id number] DID#: [id number]
== END 2017-08-31 14:05 | disposition home or self-care (01) | DRG 251 ==
LOC: E/R 16:45 → TEL 18:10 → ICU 08-30 15:02 → TEL 08-30 21:52
PROVIDERS: ADMIT Internal Medicine; ATTEND Internal Medicine
PROC: 4A023N7 Measurement of Cardiac Sampling and Pressure, Left Heart, Percutaneous Approach (ICD-10-PCS; principal; 2017-08-26 14:30)
PROC: 0W3P8ZZ Control Bleeding in Gastrointestinal Tract, Via Natural or Artificial Opening Endoscopic (ICD-10-PCS; 2017-08-29)
PROC: 0DJD8ZZ Inspection of Lower Intestinal Tract, Via Natural or Artificial Opening Endoscopic (ICD-10-PCS; 2017-08-29 12:30)
PROC: 02713ZZ Dilation of Coronary Artery, Two Arteries, Percutaneous Approach (ICD-10-PCS; 2017-08-30 15:00)
DX: I25.110 Atherosclerotic heart disease of native coronary artery with unstable angina pectoris (principal); K76.0 Fatty (change of) liver, not elsewhere classified; K62.6 Ulcer of anus and rectum; K92.2 Gastrointestinal hemorrhage, unspecified; I35.0 Nonrheumatic aortic (valve) stenosis; I10 Essential (primary) hypertension; G47.30 Sleep apnea, unspecified; K21.9 Gastro-esophageal reflux disease without esophagitis; Z85.46 Personal history of malignant neoplasm of prostate; D50.9 Iron deficiency anemia, unspecified; E78.5 Hyperlipidemia, unspecified; Z87.891 Personal history of nicotine dependence; Z96.641 Presence of right artificial hip joint; K31.89 Other diseases of stomach and duodenum; K25.9 Gastric ulcer, unspecified as acute or chronic, without hemorrhage or perforation
CPT/HCPCS: 36415; 71010; 80048; 80053; 80076; 81003; 82270; 82550; 82553; 83735; 84100; 84484; 85025; 85610; 85730; 86850; 86900; 86901; 88305; 88312; 93005; 93306; 93458; C1725; C1887; C9600; J1644; J2250; J2916; J3010; J7030; Q9967